=== PATIENT | female | born 1950 | race Caucasian/White ===

== ENCOUNTER 2022-08-25 14:33 | Outpatient (CLI) | payer OTHER, MEDICARE, SELFPAY ==
[2022-08-25 17:44] LABS: Albumin* 3.9 g/dL (3.3-5.0)
[2022-08-25 17:45] LABS: Chloride* 107 mmol/L (96-114); Potassium* 3.6 mmol/L (3.6-5.1); Sodium* 140 mmol/L (135-149)
[2022-08-25 17:47] LABS: Aspartate Amino Transferase* 36 U/L (12-35); Bilirubin Total* 0.9 mg/dL (0.1-1.5); Carbon Dioxide* 27 mmol/L (20-32); Cholesterol* 201 mg/dL (90-199); Estimated Glomerular Filt Rate 60 ml/min; Total Protein* 7.2 g/dL (6.0-8.3)
[2022-08-25 17:48] LABS: Alanine Aminotransferase* 28 U/L (4-35); Alkaline Phosphatase* 87 U/L (40-150); Blood Urea Nitrogen* 15 mg/dL (7-30); Calcium* 9.3 mg/dL (8.4-10.6); Glucose* 84 mg/dL (60-115); Triglycerides* 139 mg/dL (40-149)
[2022-08-25 17:49] LABS: HDL Cholesterol* 40 mg/dL (>=50); LDL Cholesterol Calculated 133 mg/dL (<100)
== END 2022-08-25 14:34 | disposition home or self-care (01) ==
PROVIDERS: PCP Family Medicine; Visit Provider Family Medicine
DX: Z00.00 Encounter for general adult medical examination without abnormal findings (principal); I10 Essential (primary) hypertension; E78.5 Hyperlipidemia, unspecified; E55.9 Vitamin D deficiency, unspecified; R73.03 Prediabetes; Z78.9 Other specified health status
CPT/HCPCS: 80053; 80061; 84443

== ENCOUNTER 2022-09-10 12:49 | Outpatient (CLI) | payer OTHER, SELFPAY ==
--- NOTE | 2022-09-10 13:30 | CRLHL7_ITS ---
For Patients: As a result of the Century Cures Act, medical imaging exams and procedure reports are released immediately into your electronic medical record. You may view this report before your referring provider. If you have questions, please contact your health care provider. DXA BONE MINERAL DENSITY STUDY Reason for exam: Screening. Current height (in): 60.5. Weight (lb): 150. Menopause age: 53. Ethnicity: White. 1. Have you had a previous hip or vertebral fracture? No. 2. Have you had any fractures during your adult life which did not result from significant trauma (e.g., auto accident)? No. 3. Did either of your parents have a hip fracture? No. 4. Do you smoke? No. 5. Have you ever taken Glucocorticoids? No. 6. Do you have rheumatoid arthritis? No. 7. Do you have secondary osteoporosis? No. 8. Do you drink 3 or more alcoholic drinks per day? No. 9. Are you being treated for osteoporosis? No. 10. Have you ever taken any of the following medications: Actonel, Evista, Fosamax, Miacalcin, Reclast, Boniva, Forteo, HRT (i.e., estrogen/hormone therapy), Protelos, Prolia, Vitamin D, Calcium, other ??? please specify. ANSWER: Yes, vitamin D and calcium. 11. Do you have any of the following medical conditions: Anorexia or bulimia, asthma or emphysema, end stage renal disease, hyperparathyroidism, any seizure disorders, cancer, inflammatory bowel diseases, hysterectomy, other ??? please specify. ANSWER: Yes, asthma or emphysema. 12. What was your maximum height (inches)? 60.5. 13. Do you perform weight bearing exercise regularly? Yes. 14. Do you regularly consume dairy products? Yes. 15. Do you drink caffeinated beverages? No. If female: 16. At what age did your period start? 17. 17. Are you premenopausal? No. 18. How many full-term pregnancies have you had? 1. 19. Have you ever missed your period for more than 6 months in a row (not including or menopause)? No. TECHNIQUE: Bone mineral density study was performed using the sim4tec. FINDINGS: The results of the study expressed as bone mineral density (BMD) are as follows: Lumbar spine L1 to L3: BMD: 0.884 g/cm2. T-score: -1.2. Z-score: 0.9. Neck Left: BMD: 0.626 g/cm2. T-score: -2.0. Z-score: -0.2. Right: BMD: 0.645 g/cm2. T-score: -1.8. Z-score: 0.0. Total Left: BMD: 0.796 g/cm2. T-score: -1.2. Z-score: 0.4 Right: BMD: 0.854 g/cm2. T-score: -0.7. Z-score: 0.8 IMPRESSION: Osteopenia. FRAX 10-year Fracture Risk Major Osteoporotic Fracture: 12% Hip Fracture: 2.2% Reported Risk Factors: [place] () Neck BMD=0.626, BMI= 28.8 Mala Senior M.D. Diagnostic/Breast Radiologist [email or web address] LORI/[email or web address] [email or web address]/Dictated by: Mala Senior MD @ 09/10/2022 2:23:00 PM (Electronically Signed)
== END 2022-09-10 12:50 | disposition home or self-care (01) ==
PROVIDERS: PCP Family Medicine; Visit Provider Family Medicine
DX: Z13.820 Encounter for screening for osteoporosis (principal); M85.89 Other specified disorders of bone density and structure, multiple sites; Z78.0 Asymptomatic menopausal state
CPT/HCPCS: 77080

== ENCOUNTER 2022-11-14 11:19 | Outpatient (CLI) | payer OTHER, SELFPAY | END 2022-11-14 11:20 | disposition home or self-care (01) | LOC: AMB 11-17 05:25 | PROVIDERS: PCP Family Medicine; Visit Provider Family Medicine | DX: R41.82 Altered mental status, unspecified (principal); R53.83 Other fatigue | CPT/HCPCS: A0425; A0429 ==

== ENCOUNTER 2022-11-14 11:51 | Emergency (ER) | payer OTHER, SELFPAY ==
[2022-11-14 12:03] VITALS: BP 139/94; PULSE 80; RESP 18; TEMP 35.9; O2SAT 97; BMI 25.6
--- NOTE | 2022-11-14 12:21 | CRLHL7_ITS ---
For Patients: As a result of the Century Cures Act, medical imaging exams and procedure reports are released immediately into your electronic medical record. You may view this report before your referring provider. If you have questions, please contact your health care provider. INDICATION: Chronic weakness TECHNIQUE: Noncontrast axial CT of the head. Coronal and sagittal reformats. Bone and soft tissue algorithms. COMPARISON: MRI brain 03/20/2021 FINDINGS: Redemonstration of bifrontal lobe encephalomalacia and gliosis, with scattered chronic lacunar infarcts throughout the bilateral basal ganglia and cerebellum. No acute intracranial hemorrhage or abnormal extra-axial fluid collection. No midline shift, hydrocephalus, or herniation. Generalized cerebral volume loss. Carpio-white matter differentiation is grossly maintained. Moderate supratentorial white matter hypoattenuation bilaterally. The midline structures are unremarkable. There is scattered intracranial atherosclerotic plaquing. Bony calvarium is grossly intact. Visualized paranasal sinuses and mastoid air cells are clear. Prominent cerumen is noted within the bilateral external auditory canals, left more than right. Unremarkable visualized orbits. IMPRESSION: 1. No evidence of acute intracranial abnormality. 2. Stable appearance of chronic bilateral frontal lobe infarcts, and remote lacunar infarcts throughout the basal ganglia and cerebellum. 3. Generalized cerebral volume loss and moderate chronic microangiopathy changes. 4. Prominent cerumen in both external auditory canals, left more than right. Please note that all CT scans at this facility use dose modulation, iterative reconstruction, and/or weight-based dosing when appropriate to reduce radiation dose to as low as reasonably achievable. Dictated by Rosalind Saucedo MD @ 11/14/2022 1:11:14 PM (Electronically Signed)
--- NOTE | 2022-11-14 12:21 | CRLHL7_ITS ---
For Patients: As a result of the Cures Act, medical imaging exams and procedure reports are released immediately into your electronic medical record. You may view this report before your referring provider. If you have questions, please contact your health care provider. Indication: Pain Comparison: None available. Technique: AP internal, external rotation, and scapular-Y views of the left shoulder were obtained Findings: There is no displaced fracture or dislocation. There are degenerative changes of the acromioclavicular and glenohumeral joints with minimal degenerative changes of the rotator cuff footplate. The soft tissues are unremarkable. Impression: Moderate degenerative changes of the shoulder without evidence of displaced fracture. Dictated by Albaro Alvarenga MD @ 11/14/2022 1:38:49 PM (Electronically Signed)
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
[2022-11-14 13:14] LABS: Basophils Absolute Auto 0.03 K/uL (0.00-0.30); Basophils Percent Auto 0.5 % (0.0-3.0); Eosinophils Absolute Auto 0.22 K/uL (0.00-0.50); Eosinophils Percent Auto 3.4 % (0.0-7.0); Hematocrit 42.8 % (33.0-51.0); Hemoglobin* 14.7 gm/dL (12.0-16.0); Lymphocytes Percent Auto 15.6 % (20-44); Mean Corpuscular HGB Conc 34 gm/dL (32-36); Mean Corpuscular Hemoglobin 30 pg (26-34); Mean Corpuscular Volume 87 fL (80-100); Monocytes Percent Auto 7.7 % (0.0-11.0); Neutrophils Percent Auto 72.8 % (42.0-72.0); Platelet Count* 358 K/uL (140-440); RDW Coefficient of Variation % 11.4 % (11.5-15.5); Red Blood Count 4.94 m/uL (4.00-5.20); Slide Review Reflex No; White Blood Count* 6.48 K/uL (4.50-11.00)
[2022-11-14 13:23] LABS: Chloride* 106 mmol/L (96-114); Potassium* 3.2 mmol/L (3.6-5.1); Sodium* 140 mmol/L (135-149)
[2022-11-14 13:26] LABS: Carbon Dioxide* 27 mmol/L (20-32); Creatinine* 0.6 mg/dL (0.5-1.5); Est. Creatinine Clearance* 40.81; Estimated Glomerular Filt Rate 96 ml/min
[2022-11-14 13:27] LABS: Blood Urea Nitrogen* 13 mg/dL (7-30); Calcium* 9.3 mg/dL (8.4-10.6); Glucose* 104 mg/dL (60-115)
[2022-11-14 13:43] VITALS: PULSE 68; O2SAT 97
[2022-11-14 13:56] LABS: Appearance Urine Cloudy (Clear); Bilirubin Urine Negative (Negative); Blood Urine Negative (Negative); Color Urine Yellow (Yellow); Glucose Urine Negative (Negative); Ketones Urine 1+ (Negative); Leukocyte Esterase Urine Negative (Negative); Nitrite Urine Negative (Negative); Protein Urine Negative (Negative); Specific Gravity Urine 1.015 (1.000-1.030)
--- NOTE | 2022-11-14 13:56 | ED.NURSE ---
Per instruction, call to Faiz[facility] TELLES to discuss pt's living conditions and if pt is safe to be discharged home. [facility] TELL[facility] reports pt is safe to return home and that she has food, etc., but that medical social worker needs to follow up next week to assist pt in removing clutter. Fa[facility] TELLES reports pt stated she couldn't do it all by herself anymore. updated.
[2022-11-14 14:03] LABS: RBC Urine 0-2 (0-2); Squamous Epithelial Cell Urine Few (None-Few); WBC Urine 0-2 (0-5)
[2022-11-14 14:04] LABS: Amorphous Sediment Urine Moderate
[2022-11-14] MEDS: POTASSIUM CHLORIDE 10 MEQ CAPSULE ER 20 MEQ PO (14:19)
--- NOTE | 2022-11-14 14:31 | ED.NURSE ---
Call to pt's son to give update. No answer. VM left.
== END 2022-11-14 14:56 | disposition home or self-care (01) ==
PROVIDERS: Emergency Provider Internal Medicine; PCP Family Medicine
DX: R53.1 Weakness (principal); Z91.148 Patient's other noncompliance with medication regimen for other reason
CPT/HCPCS: 36415; 70450; 73030; 80048; 81003; 81015; 85025; 99283; 99284; 99285; A9270

== ENCOUNTER 2022-11-16 16:10 | Outpatient (CLI) | payer OTHER, SELFPAY | END 2022-11-16 16:11 | disposition home or self-care (01) | LOC: AMB 11-17 07:46 | PROVIDERS: PCP Family Medicine; Visit Provider Family Medicine | DX: R53.1 Weakness (principal); R20.0 Anesthesia of skin | CPT/HCPCS: A0425; A0427 ==

== ENCOUNTER 2022-11-16 16:28 | Emergency (ER) | payer OTHER, SELFPAY ==
[2022-11-16] VITALS (10 sets, daily range): BP systolic 108–148; BP diastolic 88–101; PULSE 73–82; TEMP 36.2; O2SAT 95–97; BMI 25.6
[2022-11-16] MEDS: KETOROLAC 30 MG/ML inj IM (17:11)
[2022-11-16] MEDS: POTASSIUM CHLORIDE 10 MEQ CAPSULE ER 40 MEQ PO (18:17)
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
== END 2022-11-16 18:45 | disposition home or self-care (01) ==
PROVIDERS: Emergency Provider Family Medicine; PCP Family Medicine
DX: M75.00 Adhesive capsulitis of unspecified shoulder (principal); E87.6 Hypokalemia
CPT/HCPCS: 36415; 84132; 96372; 99282; 99283; 99284; A9270; J1885

== ENCOUNTER 2022-11-20 06:04 | Outpatient (CLI) | payer OTHER, SELFPAY | END 2022-11-20 06:05 | disposition home or self-care (01) | LOC: AMB 11-24 09:49 | PROVIDERS: PCP Family Medicine; Visit Provider Internal Medicine | DX: R53.1 Weakness (principal) | CPT/HCPCS: A0998 ==

== ENCOUNTER 2022-11-21 09:25 | Outpatient (CLI) | payer OTHER, SELFPAY | END 2022-11-21 09:26 | disposition home or self-care (01) | LOC: AMB 11-25 09:38 | PROVIDERS: PCP Family Medicine; Visit Provider Family Medicine | DX: M25.542 Pain in joints of left hand (principal); M25.541 Pain in joints of right hand; M62.81 Muscle weakness (generalized) | CPT/HCPCS: A0425; A0429 ==

== ENCOUNTER 2022-11-21 09:39 | Emergency (ER) | payer OTHER, SELFPAY ==
[2022-11-21] VITALS (13 sets, daily range): BP systolic 139–155; BP diastolic 84–112; PULSE 64–78; RESP 16–18; TEMP 36.2; O2SAT 95–100; BMI 25.6
--- NOTE | 2022-11-21 09:49 | CRLHL7_ITS ---
For Patients: As a result of the Century Cures Act, medical imaging exams and procedure reports are released immediately into your electronic medical record. You may view this report before your referring provider. If you have questions, please contact your health care provider. INDICATION: WEAKNESS HX OD STOKE TECHNIQUE: CT of the head without contrast. Coronal and sagittal reformats. Bone and soft tissue algorithms. COMPARISON: No prior studies available for comparison at this institution. FINDINGS: Stable moderate regions of encephalomalacia in the bilateral frontal cortex. Stable chronic infarcts in the bilateral basal ganglia. No acute intracranial hemorrhage or extraaxial collection. No evidence of acute cortical infarction. No mass effect or midline shift. Mild generalized cerebral and cerebellar parenchymal volume loss. Mild regions of decreased attenuation within the periventricular and subcortical white matter of both cerebral hemispheres most likely reflects chronic microvascular ischemic disease and age related change in this patient. Vascular calcifications within the carotid siphons. Orbital contents are normal. No calvarial fractures. No lytic or sclerotic osseous lesions within the calvarium or skull base. Scalp and other imaged soft tissue structures are normal. Mastoid air cells are clear. Moderate cerumen in the external ear canals. Rightward deviation of the nasal septum. IMPRESSION: 1. No acute intracranial abnormality. 2. Stable moderate encephalomalacia in the frontal cortex. Stable chronic infarcts in the bilateral basal ganglia. 3. Stable mild parenchymal volume loss and chronic small vessel ischemic changes. Please note that all CT scans at this facility use dose modulation, iterative reconstruction, and/or weight-based dosing when appropriate to reduce radiation dose to as low as reasonably achievable. Dictated by Perfecto Turner MD @ 11/21/2022 10:23:16 AM (Electronically Signed)
--- NOTE | 2022-11-21 09:50 | CRLHL7_ITS ---
For Patients: As a result of the Cures Act, medical imaging exams and procedure reports are released immediately into your electronic medical record. You may view this report before your referring provider. If you have questions, please contact your health care provider. INDICATION: Weakness. FINDINGS: A single PA chest x-ray shows a normal cardiac silhouette. The lungs show no focal pulmonary opacities. Sharp pleural margins. No pneumothorax. IMPRESSION: No focal pulmonary opacities. No pneumothorax. Dictated by Cheng Senior MD @ 11/21/2022 10:31:01 AM Dictated by: Cheng Senior MD @ 11/21/2022 10:31:08 (Electronically Signed)
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
--- NOTE | 2022-11-21 10:08 | ED.NURSE ---
Patient in radiology. Will start IV/draw labs when she returns.
[2022-11-21] MEDS: 0.9 % SODIUM CHLORIDE 500 ML 500 ML IV (10:30)
[2022-11-21 10:41] LABS: Basophils Absolute Auto 0.04 K/uL (0.00-0.30); Basophils Percent Auto 0.7 % (0.0-3.0); Eosinophils Absolute Auto 0.14 K/uL (0.00-0.50); Eosinophils Percent Auto 2.5 % (0.0-7.0); Hematocrit 42.5 % (33.0-51.0); Hemoglobin* 14.6 gm/dL (12.0-16.0); Immature Granulocytes Abs Auto 0.01 K/uL (0.00-0.30); Immature Granulocytes Pct Auto 0.2 %; Lymphocytes Percent Auto 19.6 % (20-44); Mean Corpuscular HGB Conc 34 gm/dL (32-36); Mean Corpuscular Hemoglobin 30 pg (26-34); Mean Corpuscular Volume 87 fL (80-100); Monocytes Percent Auto 8.9 % (0.0-11.0); Neutrophils Absolute Auto 3.81 K/uL (1.7-7.0); Neutrophils Percent Auto 68.1 % (42.0-72.0); Platelet Count* 365 K/uL (140-440); RDW Coefficient of Variation % 11.7 % (11.5-15.5); Red Blood Count 4.91 m/uL (4.00-5.20)
[2022-11-21 10:48] LABS: Slide Review Reflex No
[2022-11-21 10:58] LABS: Albumin* 4.1 g/dL (3.3-5.0); Chloride* 105 mmol/L (96-114); Sodium* 139 mmol/L (135-149)
[2022-11-21 10:59] LABS: Potassium* 3.8 mmol/L (3.6-5.1)
[2022-11-21 11:01] LABS: Amylase* 57 U/L (18-89)
[2022-11-21 11:02] LABS: Alanine Aminotransferase* 26 U/L (4-35); Alkaline Phosphatase* 115 U/L (40-150); Aspartate Amino Transferase* 28 U/L (12-35); Bilirubin Direct* 0.3 mg/dL (0.0-0.5); Bilirubin Total* 0.8 mg/dL (0.1-1.5); Blood Urea Nitrogen* 19 mg/dL (7-30); Calcium* 9.8 mg/dL (8.4-10.6); Carbon Dioxide* 26 mmol/L (20-32); Creatinine* 0.8 mg/dL (0.5-1.5); Est. Creatinine Clearance* 40.81; Estimated Glomerular Filt Rate 79 ml/min; Glucose* 108 mg/dL (60-115); Total Protein* 7.9 g/dL (6.0-8.3)
[2022-11-21 11:23] LABS: Ethanol* < 0.01 % (0.01-0.03); NT Pro B Type NatriureticPept* 74 pg/mL
[2022-11-21] MEDS: IBUPROFEN 400 MG TABLET 800 MG PO (11:23)
[2022-11-21] MEDS: ACETAMINOPHEN 500 MG TABLET 1000 MG PO (11:23)
[2022-11-21 11:29] LABS: PCR FLU A Negative PCR FLU A (Negative); PCR FLU B Negative PCR FLU B (Negative); PCR RSV Negative PCR RSV (Negative)
[2022-11-21 11:30] LABS: SARS PCR* Negative SARS-CoV-2 (Negative)
[2022-11-21 11:43] LABS: Appearance Urine Clear (Clear); Bilirubin Urine Negative (Negative); Blood Urine 2+ (Negative); Color Urine Yellow (Yellow); Glucose Urine Negative (Negative); Ketones Urine Negative (Negative); Leukocyte Esterase Urine Negative (Negative); Nitrite Urine Negative (Negative); Protein Urine Negative (Negative); Specific Gravity Urine 1.015 (1.000-1.030)
[2022-11-21 11:47] LABS: Amphetamine Screen Urine Negative (Negative); Barbiturate Screen Urine Negative (Negative); Benzodiazepines Screen Urine Negative (Negative); Cocaine Screen Urine Negative (Negative); Methadone Screen Urine Negative (Negative); Methamphetamines Screen Urine Negative (Negative); Opiate Screen Urine Negative (Negative); Oxycodone Screen Urine Negative (Negative); Phencyclidine Screen Urine Negative (Negative); Tricyclic Antidepressant Urine Negative (Negative)
[2022-11-21 11:49] LABS: Cannabinoid Screen Urine POSITIVE (Negative)
[2022-11-21 11:52] LABS: Bacteria Urine Few; Squamous Epithelial Cell Urine Few (None-Few); WBC Urine 0-2 (0-5)
--- NOTE | 2022-11-21 13:34 | ED.NURSE ---
Discharge teaching complete, all questions answered. Patient requesting help establishing home health. Explained social media developer consult order was placed. Patient's son Desmond on his way to provide a ride home. Will see if he can provide a ride tomorrow to clinic appointment. I have contacted our EMS and they no longer have community oxygen equipment aide services to help with ride to clinic. Patient does have Medicare, will have her and son contact to establish rides to appointments too. IV dc'd, catheter intact. VSS. Waiting on son for ride home.
--- NOTE | 2022-11-21 14:14 | ED.NURSE ---
Patient's son here to provide ride home. Patient up to restroom, then ambulates out to son's truck with PRACTICE PHYSICIAN. Patient's son Desmond understands patient needs assistance getting to 2:15 appointment tomorrow. He notes he will try to get patient to clinic. Advised to call transport number on medicare card for future appointment transportation needs. Also, can call [employer] when the open tomorrow to inquire about taxi transportation. They are not available today (Tuesday) to schedule a ride. [facility] [employer] notes not being available tomorrow at appointment time. Son verbalizes understanding, no questions/concerns.
--- NOTE | 2022-11-22 13:34 | PC.SOCIAL ---
Phone call to pt at [phone]. There was no answer and no voicemail set up. Pt has an appointment with clinic today at 2:15 pm. Contacted nurse, Carlita, in clinic to discuss situation from ED. Asked that MD determine if pt meets criteria for home care and if pt does then complete face to face sheet. If clinic has further questions they can reach out to social work. Carlita informed they will follow up with pt during appointment. Social work will follow up as necessary.
== END 2022-11-21 14:14 | disposition home or self-care (01) ==
PROVIDERS: Emergency Provider Family Medicine; PCP Family Medicine
DX: M79.643 Pain in unspecified hand (principal)
CPT/HCPCS: 36415; 70450; 71045; 80048; 80076; 80306; 81001; 82077; 82150; 83880; 84443; 84484; 85025; 86140; 87086; 87631; 99283; 99284; A9270; J7120

== ENCOUNTER 2022-11-27 17:25 | Outpatient (CLI) | payer OTHER, SELFPAY | END 2022-11-27 17:26 | disposition home or self-care (01) | LOC: AMB 11-30 10:03 | PROVIDERS: PCP Family Medicine; Visit Provider Family Medicine | DX: M25.511 Pain in right shoulder (principal); M25.641 Stiffness of right hand, not elsewhere classified | CPT/HCPCS: A0425; A0429 ==

== ENCOUNTER 2022-12-16 11:16 | Outpatient (RCR) | payer SELFPAY | END 2023-12-16 16:07 | disposition home or self-care (01) | LOC: MOW 11:16 | PROVIDERS: PCP Family Medicine; Visit Provider Family Medicine | DX: Z76.0 Encounter for issue of repeat prescription (principal) | CPT/HCPCS: S5170 ==

== ENCOUNTER 2023-04-18 08:47 | Outpatient (CLI) | payer OTHER, SELFPAY | END 2023-04-18 08:48 | disposition home or self-care (01) | LOC: AMB 04-24 09:12 | PROVIDERS: PCP Family Medicine; Visit Provider Family Medicine | DX: M25.552 Pain in left hip (principal) | CPT/HCPCS: A0425; A0427 ==

== ENCOUNTER 2023-04-18 09:10 | Inpatient (IN) | payer OTHER, SELFPAY ==
[2023-04-18] VITALS (26 sets, daily range): BP systolic 95–157; BP diastolic 57–104; PULSE 49–101; RESP 14–18; TEMP 36.1–37.3; O2SAT 90–95; BMI 25.6
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
--- NOTE | 2023-04-18 09:47 | CRLHL7_ITS ---
For Patients: As a result of the Century Cures Act, medical imaging exams and procedure reports are released immediately into your electronic medical record. You may view this report before your referring provider. If you have questions, please contact your health care provider. Indication: fall, left hip/pelvic pain Technique: AP pelvis and two views left hip Comparison: None Findings: There is an impacted fracture deformity of the left femoral neck with associated increased density in the medullary canal. Right hip appears intact. Intact pubic rami and sacrum. Impression: Impacted left femoral neck fracture. Dictated by Perfecto Tolentino MD @ 04/18/2023 10:35:52 AM (Electronically Signed)
--- NOTE | 2023-04-18 10:40 | CRLHL7_ITS ---
For Patients: As a result of the Century Cures Act, medical imaging exams and procedure reports are released immediately into your electronic medical record. You may view this report before your referring provider. If you have questions, please contact your health care provider. INDICATION: Preop, left hip fracture TECHNIQUE: Chest 1 view COMPARISON: 11/21/2022 FINDINGS: Low lung volumes. Aortic tortuosity. Mild areas of parenchymal scarring. No acute infiltrate or edema. No effusion or pneumothorax. IMPRESSION: No acute findings. Dictated by Perfecto Tolentino MD @ 04/18/2023 10:55:49 AM (Electronically Signed)
[2023-04-18 11:11] LABS: Basophils Absolute Auto 0.03 K/uL (0.00-0.30); Basophils Percent Auto 0.4 % (0.0-3.0); Eosinophils Percent Auto 6.7 % (0.0-7.0); Hematocrit 40.5 % (33.0-51.0); Hemoglobin* 13.7 gm/dL (12.0-16.0); Immature Granulocytes Abs Auto 0.01 K/uL (0.00-0.30); Immature Granulocytes Pct Auto 0.1 %; Lymphocytes Percent Auto 6.7 % (20-44); Mean Corpuscular HGB Conc 34 gm/dL (32-36); Mean Corpuscular Hemoglobin 29 pg (26-34); Mean Corpuscular Volume 87 fL (80-100); Monocytes Percent Auto 4.8 % (0.0-11.0); Neutrophils Percent Auto 81.3 % (42.0-72.0); Platelet Count* 251 K/uL (140-440); Red Blood Count 4.66 m/uL (4.00-5.20); White Blood Count* 7.45 K/uL (4.50-11.00)
[2023-04-18 11:12] LABS: Slide Review Reflex No
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
[2023-04-18 11:27] LABS: Albumin* 3.9 g/dL (3.3-5.0)
[2023-04-18 11:28] LABS: Chloride* 106 mmol/L (96-114); Potassium* 3.4 mmol/L (3.6-5.1); Sodium* 138 mmol/L (135-149)
[2023-04-18 11:30] LABS: Anion Gap 10 mEq/L (7-15); Aspartate Amino Transferase* 20 U/L (12-35); Bilirubin Total* 1.3 mg/dL (0.1-1.5); Carbon Dioxide* 22 mmol/L (20-32); Creatinine* 0.7 mg/dL (0.5-1.5); Est. Creatinine Clearance* 40.81; Estimated Glomerular Filt Rate 92 ml/min; Total Protein* 7.6 g/dL (6.0-8.3)
[2023-04-18 11:31] LABS: Alanine Aminotransferase* 15 U/L (4-35); Alkaline Phosphatase* 102 U/L (40-150); Blood Urea Nitrogen* 12 mg/dL (7-30); Calcium* 9.5 mg/dL (8.4-10.6); Glucose* 93 mg/dL (60-115)
--- NOTE | 2023-04-18 11:41 | ED.NURSE ---
report given to Jennyfer, pt will transfer to room 256 via cart.
[2023-04-18] MEDS: fentaNYL 100 MCG/2 ML inj 25 MCG IVP (11:50)
[2023-04-18] MEDS: ONDANSETRON 2 MG/ML inj 4 MG IVP (11:50)
[2023-04-18 12:25] LABS: Cholesterol* 227 mg/dL (90-199); HDL Cholesterol* 39 mg/dL (>=50); LDL Cholesterol Calculated 164 mg/dL (<100); Triglycerides* 122 mg/dL (40-149)
[2023-04-18 12:26] LABS: Ethanol* < 0.01 % (0.01-0.03)
[2023-04-18] MEDS: POTASSIUM CHLORIDE 10 MEQ/100 ML PIGGYBACK 100 MEQ IVPB ×2 (13:03→16:11)
[2023-04-18 13:27] LABS: Hemoglobin A1C* 4.87 % (0-5.6)
[2023-04-18] MEDS: LACTATED RINGERS 1000 ML 1,000 ML 125 ML IV (13:50)
[2023-04-18] MEDS: CEFAZOLIN 2 GM in 0.9 % SODIUM CHLORIDE Mini-bag 100 ML IVPB (13:55)
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
--- NOTE | 2023-04-18 14:00 | CRLHL7_ITS ---
For Patients: As a result of the Cures Act, medical imaging exams and procedure reports are released immediately into your electronic medical record. You may view this report before your referring provider. If you have questions, please contact your health care provider. Indication: Fracture fixation Technique: Three fluoroscopic images of the left hip. Fluoroscopic time 50.4 seconds. IMPRESSION: Fluoroscopic guidance for open reduction internal fixation proximal left femoral fracture. Dictated by Perfecto Tolentino MD @ 04/19/2023 9:10:15 AM (Electronically Signed)
--- NOTE | 2023-04-18 14:22 | SUR.OPER ---
BLOCK COMPLETED PER MDA PREOPERATIVELY
--- NOTE | 2023-04-18 14:38 | W.PM.NB ---
Nerve Block Nerve Block Time Seen by Provider: 14:02 Date Seen: 04/18/23 Type of block requested by surgeon for post-operative analgesia: KAMINI/LFCN Side: left Time out performed: Yes Verification of patient name: Yes Verification of date of : Yes Site marking: site marked Name of person performing procedure: Jan Continuous monitoring Was continuous monitoring of O2 sat, B/P, nurse monitoring, recorded every 15 minutes?: Yes Procedure Checklist: sterile prep, needles and gloves Ultrasound guided. Images saved: Yes Medications given in 5ml increments after negative aspiration: Ropivicaine %: 0.5 mL: 30 Needle gauge: 20 Decadron (mg): 10 Precedex (mcg): 25 Patient tolerated procedure well: Yes Additional comments: Needle noted below psoas tendon needle noted adjacent to LFCN Block Charges Block Charge (with Pro Fee): Other Periph Nerve Block Use of Ultrasound Machine for Block: Yes- US Guidance/pain block
--- NOTE | 2023-04-18 14:38 | W.ANESCHARGE ---
Anesthesia Charges Start Date/Time Anesthesia Start Date: 04/18/23 Anesthesia Start Time: 13:50 Stop Date/Time Anesthesia Stop Date: 04/18/23 Anesthesia Stop Time: 15:02 Summary Extremes of Age - Over 70 or under 1: MDA
--- NOTE | 2023-04-18 14:43 | P.ORPRC_ITS ---
Procedure Note Date of procedure: 04/18/23 Procedure: PREOPERATIVE DIAGNOSES: 1. Left femoral neck fracture, valgus impacted, extra-articular POSTOPERATIVE DIAGNOSES: 1. Left femoral neck fracture, valgus impacted, extra-articular NAME OF OPERATION: 1. Left femur open reduction and internal fixation 2. 56396 - intraoperative fluoroscopy up to 1 hour. SURGEON: Clinton Gamboa MD PROJECT MANAGER/TEAM COACH: Ángel ESCAMILLA. Of note, an assistant product manager was critical for this case to aide in patient positioning, extremity positioning, tissue retraction, instrument manipulation, and closure. ANESTHESIA: Spinal IMPLANTS: Synthes femoral neck system (FNS) with 1 hole side plate with associated screw, a lag screw, and divergent, anti-rotation femoral head screw. EBL: 50 mL COMPLICATIONS: None evident INDICATIONS: The patient is a pleasant, 72-year-old female who unfortunately sustained a fall on 04/16/2023. She was able to bear weight following this for the next 2 days. However, it was painful. This prompted her to visit [facility]. X-rays were obtained and revealed a proximal femur fracture consistent with that described above. Given these findings, along with the desire to help with pain control and improve mobility/mobilization, surgery was recommended to stabilize the fracture and prevent it from displacing. PROCEDURE: Following a thorough discussion of risks, benefits, and alternatives, consent was obtained and the left hip was marked. After obtaining proper medical evaluation determining the patient was optimized prior to surgery, they were brought to the operating room and placed supine on the operating table. Induction of anesthesia undertaken. 1 g IV Ancef was administered within 1 hr of incision preoperatively. Proper time-out was performed identifying proper patient, site, and procedure. The operative extremity was prepped & draped in the appropriate sterile fashion using ChloraPrep after the patient was positioned on the fracture table with the head in neutral alignment and all bone prominences well padded. C-arm fluoroscopic imaging was utilized to obtain AP and lateral views of the operative hip. This indeed confirmed proper position of the proximal femur fracture. 10 blade skin incision was made distal to the greater trochanteric tip. Sharp incision through skin and ITB band allowed palpation of the proximal femur distal to the greater trochanteric tip. A partially threaded guidewire was initially placed near the center of the femoral neck position on both AP and lateral planes. Following this the associated steps for placement of the FNS device were completed sequentially including the bolt, crossing screw for 1 hole plate, and anti-rotation screw. C-arm fluoroscopic imaging confirmed fracture to remain stable, screws to be extra-articular, and the femur to now be moving as a single unit. Irrigation normal saline was performed followed by closure with # 0 Vicryl for the ITB band, 2-O Vicryl and 4-0 Monocryl for subcutaneous and subcuticular closure, respectively. The patient was awoken from anesthesia and transferred to the PACU in stable condition. PLAN: 1. Weight bear as tolerated operative lower extremity. 2. Encouraged ice. 3. Oxycodone for pain as needed. 4. 23 hr perioperative antibiotics. 5. Chemoprophylaxis for DVT prophylaxis along with Paresh nguyen and SCDs.
[2023-04-18] MEDS: LACTATED RINGERS 1000 ML 1,000 ML 35 ML IV (14:55)
[2023-04-18] MEDS: LACTATED RINGERS 1000 ML 1,000 ML 75 ML IV ×2 (15:45→19:10)
[2023-04-18] MEDS: PANTOPRAZOLE SODIUM 40 MG INJ IVP (16:10)
[2023-04-18] MEDS: HYDROmorphone 0.5 mg/0.5 ml inj IVP (16:11)
--- NOTE | 2023-04-18 19:00 | PC.NURSE ---
End of shift... Initially arrived to the floor in the early afternoon...A and orientated L hip fracture Dr Lewis ruled her a candidate for a repair. Returned from surgery @ 1530. VS on RA until about 1600 then went down into the mid 80's O2 order was obtained was on 1L NC, removed @ 1830.. stating in the mid 90's now with no issues. Dressing to L hip is CDI, with no drainage. Active ice to Op site. Tolerating PO intake and food with no complaints. Complained of neck pain upon arrival back from surgery- PRN Dilaudid was given with adequate relief.. rated her pain at 2/10 now she states she has no pain. She has not gotten up yet this evening or voided since surgery. LR @ 75 hr... 2 doses of IV potassium were given today. Will call appropriately. Call light within reach.. resting in bed watching TV.
[2023-04-18] MEDS: SENNOSIDES 1 TAB TABLET 2 TAB PO (21:16)
[2023-04-19] VITALS (7 sets, daily range): BP systolic 126–155; BP diastolic 75–129; PULSE 68–85; RESP 16–18; TEMP 36.4–37.3; O2SAT 91–98
--- NOTE | 2023-04-19 06:12 | PC.NURSE ---
End of shift report [id number]: Patient denied pain to left hip throughout the shift. Dressing clean, dry and intact. Left hip with trace edema. Incontinent of bladder through the shift, per patient report that is her baseline. Patient voiding large amounts of yellow urine.
[2023-04-19] MEDS: OMEPRAZOLE 20 MG CAPSULE DR PO (06:29)
[2023-04-19 06:35] LABS: Hematocrit 37.7 % (33.0-51.0); Hemoglobin* 12.8 gm/dL (12.0-16.0); Mean Corpuscular HGB Conc 34 gm/dL (32-36); Mean Corpuscular Hemoglobin 29 pg (26-34); Mean Corpuscular Volume 86 fL (80-100); Platelet Count* 245 K/uL (140-440); Red Blood Count 4.39 m/uL (4.00-5.20); White Blood Count* 7.37 K/uL (4.50-11.00)
[2023-04-19 06:42] LABS: Slide Review Reflex No
[2023-04-19 06:54] LABS: Potassium* 3.7 mmol/L (3.6-5.1); Sodium* 137 mmol/L (135-149)
[2023-04-19 06:57] LABS: Blood Urea Nitrogen* 13 mg/dL (7-30)
[2023-04-19 07:05] LABS: INR 1.02 (0.91-1.10)
[2023-04-19 07:12] LABS: Creatinine* 0.6 mg/dL (0.5-1.5); Est. Creatinine Clearance* 40.81; Estimated Glomerular Filt Rate 96 ml/min
--- NOTE | 2023-04-19 08:44 | PM.ORPN ---
Subjective Subjective Date Seen: 04/19/23 Principal diagnosis: Status postop day 1, left hip, femoral neck ORIF Interval history: Patient reports doing well. No acute events over night. Pain managed with scheduled and PRN medications, ice. DVT prophylaxis: Rivaroxaban, bilateral knee high Paresh stockings, SCDs, walking. Denies fevers, chills, aches, N/V, CP, SOB/AMBROSE, or lightheadedness. Passing flatus. Ortho Exam Narrative Exam Narrative: -Patient appears comfortable in bed, eating breakfast; no apparent acute distress -Alert and oriented times 3 -Operative hip mildly swollen; soft tissues supple; no obvious erythema. No ecchymosis. Warmth appropriate -Surgical dressing clean, dry, intact; no obvious drainage, no erythematous streaking peripheral to the bandage -Bilateral calves soft and supple; no significant swelling, edema, tenderness, erythema, discoloration, warmth, or palpable cords -2+ DP/PT pulses, intact dermatomes and myotomes distally (5/5 strength). No numbness about the lateral femoral cutaneous nerve distribution. Const Vital Signs, click to edit/add: Vital Signs - 24 hr 04/18/23 09:24 04/18/23 11:15 04/18/23 11:30 Temperature 98.4 F Pulse Rate 86 88 Pulse Rate [Left Pulse Oximeter] Pulse Rate [Pulse Oximeter] 80 Respiratory Rate 16 Blood Pressure Blood Pressure [Left Arm] Blood Pressure [Right Upper Arm] 134/89 Pulse Oximetry 92 94 94 Oxygen Delivery Method Room Air Oxygen Flow Rate 04/18/23 11:31 04/18/23 11:32 04/18/23 12:00 Temperature Pulse Rate 89 86 91 Pulse Rate [Left Pulse Oximeter] Pulse Rate [Pulse Oximeter] Respiratory Rate Blood Pressure 151/93 H Blood Pressure [Left Arm] Blood Pressure [Right Upper Arm] Pulse Oximetry 95 94 90 Oxygen Delivery Method Oxygen Flow Rate 04/18/23 12:01 04/18/23 12:44 04/18/23 12:44 Temperature 99.1 F Pulse Rate 92 Pulse Rate [Left Pulse Oximeter] 77 Pulse Rate [Pulse Oximeter] Respiratory Rate 18 Blood Pressure 157/104 H Blood Pressure [Left Arm] 148/104 H Blood Pressure [Right Upper Arm] Pulse Oximetry 93 95 94 Oxygen Delivery Method Room Air Room Air Oxygen Flow Rate 04/18/23 14:55 04/18/23 15:00 04/18/23 15:05 Temperature 98.1 F Pulse Rate 80 81 78 Pulse Rate [Left Pulse Oximeter] Pulse Rate [Pulse Oximeter] Respiratory Rate 16 15 16 Blood Pressure 107/66 95/68 106/72 Blood Pressure [Left Arm] Blood Pressure [Right Upper Arm] Pulse Oximetry 92 93 94 Oxygen Delivery Method Room Air Oxygen Flow Rate 04/18/23 15:10 04/18/23 15:15 04/18/23 15:20 Temperature 97.9 F Pulse Rate 75 72 75 Pulse Rate [Left Pulse Oximeter] Pulse Rate [Pulse Oximeter] Respiratory Rate 16 18 16 Blood Pressure 110/70 109/80 110/57 L Blood Pressure [Left Arm] Blood Pressure [Right Upper Arm] Pulse Oximetry 93 94 95 Oxygen Delivery Method Oxygen Flow Rate 04/18/23 15:25 04/18/23 15:30 04/18/23 15:45 Temperature 97.0 F L 97.0 F L Pulse Rate 76 73 Pulse Rate [Left Pulse Oximeter] 63 Pulse Rate [Pulse Oximeter] Respiratory Rate 14 18 18 Blood Pressure 110/70 Blood Pressure [Left Arm] 120/76 121/82 Blood Pressure [Right Upper Arm] Pulse Oximetry 94 92 Oxygen Delivery Method Room Air Room Air Oxygen Flow Rate 04/18/23 16:00 04/18/23 16:00 04/18/23 16:15 Temperature 97.0 F L 97.0 F L Pulse Rate Pulse Rate [Left Pulse Oximeter] 68 68 Pulse Rate [Pulse Oximeter] Respiratory Rate 18 18 Blood Pressure Blood Pressure [Left Arm] 125/83 133/78 Blood Pressure [Right Upper Arm] Pulse Oximetry 91 93 91 Oxygen Delivery Method Nasal Cannula Room Air Room Air Oxygen Flow Rate 1 04/18/23 16:30 04/18/23 17:00 04/18/23 17:00 Temperature 97.0 F L 97.5 F L Pulse Rate 73 Pulse Rate [Left Pulse Oximeter] 66 60 Pulse Rate [Pulse Oximeter] Respiratory Rate 18 18 Blood Pressure Blood Pressure [Left Arm] 112/84 144/79 H Blood Pressure [Right Upper Arm] Pulse Oximetry 93 93 Oxygen Delivery Method Room Air Nasal Cannula Oxygen Flow Rate 1 04/18/23 17:30 04/18/23 18:30 04/18/23 19:30 Temperature 97.5 F L 97.5 F L 97.4 F L Pulse Rate Pulse Rate [Left Pulse Oximeter] 63 75 95 Pulse Rate [Pulse Oximeter] Respiratory Rate 18 18 18 Blood Pressure Blood Pressure [Left Arm] 133/90 H 132/99 H 126/89 Blood Pressure [Right Upper Arm] Pulse Oximetry 91 93 93 Oxygen Delivery Method Nasal Cannula Room Air Room Air Oxygen Flow Rate 1 04/18/23 21:30 04/18/23 23:00 04/18/23 23:00 Temperature 97.4 F L Pulse Rate Pulse Rate [Left Pulse Oximeter] 101 H Pulse Rate [Pulse Oximeter] Respiratory Rate 16 Blood Pressure Blood Pressure [Left Arm] 128/77 Blood Pressure [Right Upper Arm] Pulse Oximetry 95 92 92 Oxygen Delivery Method Room Air Room Air Oxygen Flow Rate 04/18/23 23:00 04/18/23 23:00 04/19/23 03:00 Temperature 97.8 F 97.5 F L Pulse Rate 49 L Pulse Rate [Left Pulse Oximeter] 58 L 81 Pulse Rate [Pulse Oximeter] Respiratory Rate 16 17 Blood Pressure Blood Pressure [Left Arm] 127/78 131/85 Blood Pressure [Right Upper Arm] Pulse Oximetry 92 91 Oxygen Delivery Method Room Air Room Air Oxygen Flow Rate Assessment and Plan Assessment and plan (1) Fracture of femoral neck, left, closed: Problem details: DOI: 04/16/2023 Risk for surgery optimized. May proceed. Status: Acute (2) Cerebral vascular disease: Problem details: -recurrent lacunar strokes, recurrent microvascular disease events -ICA mild stenosis with aneurysm (stable, MR due in 04/10) -encephalomalacia -cognitive dysfunction -MRA 03/2021 left internal carotid aneurysm, Need FU MRA in 04/10 followed by [facility] Status: Acute (3) Hypertension: Status: Chronic (4) Stenosis of carotid artery: Problem details: less than 50% adv aneurysm stable. repeat scan in 3 years to monitor - note by NS in 05/07 Status: Chronic (5) History of multiple cerebrovascular accidents (CVAs): Problem details: multiple lacunar strokes and encephalomalacia on MRI 03/2021 Echo 2019 FINAL IMPRESSION: Technically very difficult study. Limited views are obtained. Overall, normal LV systolic size and function with no significant valve disease. Negative bubble study indicating absence of patent foramen ovale. Status: Chronic (6) Mild intermittent asthma: Problem details: prn use Status: Acute (7) Prediabetes: Problem details: A1C pending Status: Chronic (8) Status post hip surgery: Problem details: POD 1 left hip ORIF, femoral neck system Status: Acute Plan - Complete 23 hour perioperative antibiotics. - PT/OT consult for education and assistance. - Social work consult for discharge planning -patient lives alone; will need assistance postoperative. This may necessitate SNF. Reports that her son lives local - Prescribed analgesics as needed - DVT prophylaxis: Rivaroxaban, bilateral knee high Paresh Hose stockings and SCDs - Anticipation is for discharge to SNF likely. Will see how patient does with PT/OT.
[2023-04-19] MEDS: RIVAROXABAN 10 MG TABLET PO (09:22)
[2023-04-19] MEDS: SENNOSIDES 1 TAB TABLET 2 TAB PO (09:22)
[2023-04-19] MEDS: ATORVASTATIN CALCIUM 40 MG TABLET PO (09:22)
[2023-04-19] MEDS: AMLODIPINE 10 MG TABLET PO (09:22)
[2023-04-19] MEDS: POTASSIUM CHLORIDE 10 MEQ CAPSULE ER 20 MEQ PO (09:22)
[2023-04-19] MEDS: SODIUM CHLORIDE 0.9 % (FLUSH) 10 ML SYRINGE 5 ML IVF (09:23)
[2023-04-19] MEDS: ACETAMINOPHEN 325 MG TABLET PO ×3 (10:09→23:23)
--- NOTE | 2023-04-19 11:13 | PM.IMPN1 ---
Progress Note: A&P Assessment and plan (1) Fracture of femoral neck, left, closed: Problem details: DOI: 04/16/2023, DOS 04/18/23 Status: Acute (2) Status post hip surgery: Problem details: POD 1 left hip ORIF, femoral neck system Status: Acute (3) Cerebral vascular disease: Problem details: -recurrent lacunar strokes, recurrent microvascular disease events -ICA mild stenosis with aneurysm (stable, MR due in 04/10) -encephalomalacia -cognitive dysfunction -MRA 03/2021 left internal carotid aneurysm, Need FU MRA in 04/10 followed by [facility] Status: Acute (4) Hypertension: Problem details: -continue amlodipine -add prn metoprolol Status: Chronic (5) Stenosis of carotid artery: Problem details: less than 50% adv aneurysm stable. repeat scan in 3 years to monitor - note by NS in 05/07 Status: Chronic (6) History of multiple cerebrovascular accidents (CVAs): Problem details: multiple lacunar strokes and encephalomalacia on MRI 03/2021 Echo 2019 FINAL IMPRESSION: Technically very difficult study. Limited views are obtained. Overall, normal LV systolic size and function with no significant valve disease. Negative bubble study indicating absence of patent foramen ovale. Status: Chronic (7) Mild intermittent asthma: Problem details: prn use Status: Acute (8) Prediabetes: Problem details: A1C <5 Status: Chronic Subjective Date Seen: 04/19/23 Interval history: Daily Progress Note - Hospital Medicine POST OP DAY #1 Day #2 04/18/23 -Left femur open reduction and internal fixation SURGEON: Clinton Gamboa MD ANESTHESIA: Spinal EBL: 50 mL COMPLICATIONS: None evident CC: LEFT HIP FRACTURE OVERNIGHT UPDATES FROM STAFF & MED, LAB, IMAGING UPDATES did well. no major issues. is weight bearing with 1A, walker. Objective: hilarious. laughing and making jokes about her cat. reports pain is well controlled. Vitals: see above Lungs: Clear. Cardiac: S1S2. MSK: left hip - no major hematoma or bleeding. Disposition/Potential discharge - Likely to return to previous living situation after acute rehab. Today I spent 50minutes seeing the patient, reviewing Expanse and EPIC notes/diagnostics, discussing the care plan with our care time that includes social work, PT/OT, pharmacy, RT, skilled Exam Const: Vital Signs, click to edit/add: Vital Signs - 24 hr 04/18/23 11:15 04/18/23 11:30 04/18/23 11:31 Temperature Pulse Rate 86 88 89 Pulse Rate [Left P ulse Oximeter] Respiratory Rate Blood Pressure 151/93 H Blood Pressure [Le ft Arm] Pulse Oximetry 94 94 95 Oxygen Delivery Me thod Oxygen Flow Rate 04/18/23 11:32 04/18/23 12:00 04/18/23 12:01 Temperature Pulse Rate 86 91 92 Pulse Rate [Left P ulse Oximeter] Respiratory Rate Blood Pressure 157/104 H Blood Pressure [Le ft Arm] Pulse Oximetry 94 90 93 Oxygen Delivery Me thod Oxygen Flow Rate 04/18/23 12:44 04/18/23 12:44 04/18/23 14:55 Temperature 99.1 F 98.1 F Pulse Rate 80 Pulse Rate [Left P ulse Oximeter] 77 Respiratory Rate 18 16 Blood Pressure 107/66 Blood Pressure [Le ft Arm] 148/104 H Pulse Oximetry 95 94 92 Oxygen Delivery Me thod Room Air Room Air Room Air Oxygen Flow Rate 04/18/23 15:00 04/18/23 15:05 04/18/23 15:10 Temperature Pulse Rate 81 78 75 Pulse Rate [Left P ulse Oximeter] Respiratory Rate 15 16 16 Blood Pressure 95/68 106/72 110/70 Blood Pressure [Le ft Arm] Pulse Oximetry 93 94 93 Oxygen Delivery Me thod Oxygen Flow Rate 04/18/23 15:15 04/18/23 15:20 04/18/23 15:25 Temperature 97.9 F Pulse Rate 72 75 76 Pulse Rate [Left P ulse Oximeter] Respiratory Rate 18 16 14 Blood Pressure 109/80 110/57 L 110/70 Blood Pressure [Le ft Arm] Pulse Oximetry 94 95 94 Oxygen Delivery Me thod Oxygen Flow Rate 04/18/23 15:30 04/18/23 15:45 04/18/23 16:00 Temperature 97.0 F L 97.0 F L Pulse Rate 73 Pulse Rate [Left P ulse Oximeter] 63 Respiratory Rate 18 18 Blood Pressure Blood Pressure [Le ft Arm] 120/76 121/82 Pulse Oximetry 92 91 Oxygen Delivery Me thod Room Air Room Air Nasal Cannula Oxygen Flow Rate 1 04/18/23 16:00 04/18/23 16:15 04/18/23 16:30 Temperature 97.0 F L 97.0 F L 97.0 F L Pulse Rate Pulse Rate [Left P ulse Oximeter] 68 68 66 Respiratory Rate 18 18 18 Blood Pressure Blood Pressure [Le ft Arm] 125/83 133/78 112/84 Pulse Oximetry 93 91 93 Oxygen Delivery Me thod Room Air Room Air Room Air Oxygen Flow Rate 04/18/23 17:00 04/18/23 17:00 04/18/23 17:30 Temperature 97.5 F L 97.5 F L Pulse Rate 73 Pulse Rate [Left P ulse Oximeter] 60 63 Respiratory Rate 18 18 Blood Pressure Blood Pressure [Le ft Arm] 144/79 H 133/90 H Pulse Oximetry 93 91 Oxygen Delivery Me thod Nasal Cannula Nasal Cannula Oxygen Flow Rate 1 1 04/18/23 18:30 04/18/23 19:30 04/18/23 21:30 Temperature 97.5 F L 97.4 F L 97.4 F L Pulse Rate Pulse Rate [Left P ulse Oximeter] 75 95 101 H Respiratory Rate 18 18 16 Blood Pressure Blood Pressure [Le ft Arm] 132/99 H 126/89 128/77 Pulse Oximetry 93 93 95 Oxygen Delivery Me thod Room Air Room Air Room Air Oxygen Flow Rate 04/18/23 23:00 04/18/23 23:00 04/18/23 23:00 Temperature 97.8 F Pulse Rate Pulse Rate [Left P ulse Oximeter] 58 L Respiratory Rate 16 Blood Pressure Blood Pressure [Le ft Arm] 127/78 Pulse Oximetry 92 92 92 Oxygen Delivery Me thod Room Air Room Air Oxygen Flow Rate 04/18/23 23:00 04/19/23 03:00 04/19/23 09:20 Temperature 97.5 F L Pulse Rate 49 L Pulse Rate [Left P ulse Oximeter] 81 Respiratory Rate 17 16 Blood Pressure Blood Pressure [Le ft Arm] 131/85 Pulse Oximetry 91 94 Oxygen Delivery Me thod Room Air Room Air Oxygen Flow Rate 04/19/23 09:20 Temperature 98.5 F Pulse Rate Pulse Rate [Left P ulse Oximeter] 83 Respiratory Rate 16 Blood Pressure Blood Pressure [Le ft Arm] 153/129 H Pulse Oximetry 94 Oxygen Delivery Me thod Room Air Oxygen Flow Rate Labs Labs: Laboratory Results - last 24 hr 04/18/23 04/18/23 04/19/23 11:00 11:46 06:11 WBC 7.37 RBC 4.39 Hgb 12.8 Hct 37.7 MCV 86 MCH 29 MCHC 34 Plt Count 245 INR 1.02 Sodium 138 137 Potassium 3.4 L 3.7 Chloride 106 Carbon Dioxide 22 Anion Gap 10 BUN 12 13 Creatinine 0.7 0.6 Estimated Creat Clear 40.81 40.81 Estimated GFR 92 96 Glucose 93 Hemoglobin A1c 4.87 Calcium 9.5 Total Bilirubin 1.3 AST 20 ALT 15 Alkaline Phosphatase 102 Total Protein 7.6 Albumin 3.9 Triglycerides 122 Cholesterol 227 H LDL Cholesterol, Calc 164 H HDL Cholesterol 39 L Ethyl Alcohol < 0.01 L Lab Acknowledgement Test Added
[2023-04-19] MEDS: METOPROLOL TARTRATE 25 MG TABLET PO ×3 (12:51→23:24)
--- NOTE | 2023-04-19 13:30 | PC.SOCIAL ---
Discharge planning- Met with pt to discuss discharge plans. Pt is in agreement to complete a Short-term rehab stay. Pt is aware that due to her insurance coverage she would have to go to a [employer] contracted SNF. Pt's first choice is [facility] in [place] and second choice would be the [facility] at [place]. Phone call to Cheng in admissions at [facility]. Cheng informs there is an opening and she will review the referral. Faxed referral to [facility] at [phone]. Received a phone call back confirming that [facility] can accept pt. [facility] will submit the prior authorization to pt's insurance. Provided update to charge nurse and pt. Social work will follow up as needed.
--- NOTE | 2023-04-19 18:55 | PC.NURSE ---
End of shift.. Patient is alert and orientated... Ax1 w/ RW. Continent throughout the day of bladder and bowel 1x- large loose BM diarrhea.. held stool softeners. Up in the chair throughout the day watching TV. L hip dressing CDI with no drainage active ice on throughout the day. Awaiting placement.. Needs follow up with who is going to take car eof her cat Patient advocate to follow and help arrange this. Metroprolol held this evening HR was low per parameters.
[2023-04-19] MEDS: OXYCODONE 5 MG TABLET PO ×3 (19:54→23:23)
[2023-04-20 03:00] VITALS: BP 116/70; PULSE 48; RESP 16; TEMP 36.3; O2SAT 93
--- NOTE | 2023-04-20 06:29 | PC.NURSE ---
End of shift [id number]: Patient reporting pain to left hip, utilized PRN tylenol, prn oxycodone and ice packs which were effective for pain. Transfers with minimal assist x 1, ambulates with walker and gait belt with SBA. CMS intact to left lower extremity. Dressing clean, dry and intact.
[2023-04-20 07:00] VITALS: BP 139/98; PULSE 61; RESP 16; TEMP 36.6; O2SAT 96
[2023-04-20] MEDS: OMEPRAZOLE 20 MG CAPSULE DR PO (07:36)
[2023-04-20] MEDS: OXYCODONE 5 MG TABLET PO ×2 (07:44→09:58)
[2023-04-20] MEDS: METOPROLOL TARTRATE 25 MG TABLET PO ×2 (08:02→12:46)
[2023-04-20] MEDS: AMLODIPINE 10 MG TABLET PO (09:59)
[2023-04-20] MEDS: RIVAROXABAN 10 MG TABLET PO (10:00)
[2023-04-20] MEDS: ATORVASTATIN CALCIUM 40 MG TABLET PO (10:00)
[2023-04-20] MEDS: POTASSIUM CHLORIDE 10 MEQ CAPSULE ER 20 MEQ PO (10:00)
[2023-04-20] MEDS: SENNOSIDES 1 TAB TABLET 2 TAB PO (10:01)
--- NOTE | 2023-04-20 10:10 | PM.ORPN ---
Subjective Subjective Date Seen: 04/20/23 Principal diagnosis: Status postop day 2, left hip, femoral neck ORIF Interval history: Patient reports doing okay, pain is more present today than it was yesterday. Also complaining of left knee pain, which is from an old fall from horse injury, nothing acute. No acute events over night. Pain managed with scheduled and PRN medications, ice. DVT prophylaxis: Rivaroxaban, bilateral thigh high Paresh stockings, SCDs, walking. Denies fevers, chills, aches, N/V, CP, SOB/AMBROSE, or lightheadedness. Ortho Exam Narrative Exam Narrative: -Patient appears comfortable in recliner; no apparent acute distress -Alert and oriented times 3 -Operative hip mildly swollen; soft tissues supple; no obvious erythema. Warmth appropriate -Surgical dressing clean, dry, intact; no obvious drainage, no erythematous streaking peripheral to the bandage -Bilateral calves soft and supple; no significant swelling, edema, tenderness, erythema, discoloration, warmth, or palpable cords -2+ DP/PT pulses, intact dermatomes and myotomes distally (5/5 strength). No numbness about the lateral femoral cutaneous nerve distribution. Const Vital Signs, click to edit/add: Vital Signs - 24 hr 04/19/23 11:55 04/19/23 11:55 04/19/23 15:00 Temperature 99.1 F 98.0 F Pulse Rate [Left Pulse Oximeter] 85 68 Respiratory Rate 16 18 Blood Pressure [Left Arm] 129/83 126/75 Pulse Oximetry 96 96 95 Oxygen Delivery Method Room Air Room Air 04/19/23 15:00 04/19/23 15:00 04/19/23 16:00 Temperature Pulse Rate [Left Pulse Oximeter] Respiratory Rate Blood Pressure [Left Arm] Pulse Oximetry 95 95 98 Oxygen Delivery Method Room Air Room Air 04/19/23 19:00 04/19/23 23:00 04/19/23 23:00 Temperature 98.1 F 97.9 F Pulse Rate [Left Pulse Oximeter] 70 73 Respiratory Rate 16 18 Blood Pressure [Left Arm] 149/92 H 155/100 H Pulse Oximetry 92 92 92 Oxygen Delivery Method Room Air Room Air Room Air 04/20/23 03:00 04/20/23 07:00 Temperature 97.4 F L Pulse Rate [Left Pulse Oximeter] 48 L Respiratory Rate 16 Blood Pressure [Left Arm] 116/70 Pulse Oximetry 93 96 Oxygen Delivery Method Room Air Room Air Assessment and Plan Assessment and plan (1) Fracture of femoral neck, left, closed: Problem details: DOI: 04/16/2023, DOS 04/18/23 Status: Acute (2) Status post hip surgery: Problem details: POD 2 left hip ORIF, femoral neck system Status: Acute (3) Cerebral vascular disease: Problem details: -recurrent lacunar strokes, recurrent microvascular disease events -ICA mild stenosis with aneurysm (stable, MR due in 04/10) -encephalomalacia -cognitive dysfunction -MRA 03/2021 left internal carotid aneurysm, Need FU MRA in 04/10 followed by [facility] Status: Acute (4) Hypertension: Problem details: -continue amlodipine -add prn metoprolol Status: Chronic (5) Stenosis of carotid artery: Problem details: less than 50% adv aneurysm stable. repeat scan in 3 years to monitor - note by NS in 05/07 Status: Chronic (6) History of multiple cerebrovascular accidents (CVAs): Problem details: multiple lacunar strokes and encephalomalacia on MRI 03/2021 Echo 2019 FINAL IMPRESSION: Technically very difficult study. Limited views are obtained. Overall, normal LV systolic size and function with no significant valve disease. Negative bubble study indicating absence of patent foramen ovale. Status: Chronic (7) Mild intermittent asthma: Problem details: prn use Status: Acute (8) Prediabetes: Problem details: A1C <5 Status: Chronic Plan - Complete 23 hour perioperative antibiotics. - PT/OT consult for education and assistance. - Social work consult for discharge planning- SNF determined. - Prescribed analgesics as needed - DVT prophylaxis: rivaroxaban, bilateral thigh high Paresh Hose stockings and SCDs - Anticipation is for discharge to [facility], 04/20/23 if the patient remains medically stable, pain is controlled, and they are safe with mobilization.
[2023-04-20] MEDS: SODIUM CHLORIDE 0.9 % (FLUSH) 10 ML SYRINGE 5 ML IVF (10:59)
[2023-04-20] MEDS: ONDANSETRON 2 MG/ML inj 4 MG IVP (10:59)
[2023-04-20 11:00] VITALS: BP 130/75; PULSE 52; RESP 20; TEMP 36.8; O2SAT 96
[2023-04-20] MEDS: ONDANSETRON ODT 4 MG TAB PO (11:18)
--- NOTE | 2023-04-20 11:25 | PC.SOCIAL ---
Addendum entered by JERRY Daly 04/20/23 11:30: Phone call to pt's son (Desmond) to provide an update on discharge plans per pt's request. Original Note: Discharge planning- Received a phone call from Cheng in admissions at [facility] and the prior authorization was received. [facility] can take pt today. Met with pt and provided update and discussed transportation. Pt does not have any family that can transport her and requests to go to [facility] via non-emergency ambulance. Pt accepts the responsibility of the cost of the transportation. Completed paperwork for transport. Updated charge nurse. Transportation was set for between 12:15 and 1:00 pm. Provided update to Cheng at [facility] on transport time. Completed preadmission screening. Confirmation #[id number]. Faxed [facility] to [facility]. Social work will follow up as needed.
[2023-04-20 13:37] VITALS: BP 130/75; PULSE 52; RESP 20; TEMP 36.8
--- NOTE | 2023-04-20 13:50 | PC.NURSE ---
Patient alert and oriented. Patient transfers and ambulates with stand by assist, walker and gait belt. Tolerated regular diet. Eats independently. Rec'd PRN Oxycodone at 0745 and 1000 for pain in left hip. Oxycodone effective. Orders for discharge rec'd. Patient discharged at 1336 to [place] via ambulance. Report given to Gail at [place].
--- NOTE | 2023-05-06 11:42 | P.DS_ITS ---
DS: Providers Provider Date Seen: 04/20/23 Date of admission: 04/18/23 12:34 Primary care physician: Ysabel Urbina MD Admitting Clinician: Nel Hurtado MD Consults: 04/18/23 14:30 Consult to Physical Therapy [CONS] Routine Comment: Reason(s) for PT Consult:: Recent Falls Any Restrictions?:: See Comment 04/18/23 15:35 Consult to Occupational Therapy [CONS] Routine Comment: Reason(s) for OT Consult:: Evaluate and Treat Any Restrictions?:: See Comment Comment: evaluate and treat Consult to Physical Therapy [CONS] Routine Comment: Reason(s) for PT Consult:: Evaluate and Treat Any Restrictions?:: Wt Bearing as Tolerated Consult to Rocket Motor Tester [CONS] Routine Comment: Reason for Consult:: Discharge Planning Needs Attending Physician on discharge: Izzy Hurtado MD Date of Discharge: 04/20/23 DS: Diagnosis Discharge Diagnosis (1) Fracture of femoral neck, left, closed: Status: Acute Problem details: DOI: 04/16/2023, DOS 04/18/23 (2) History of open reduction and internal fixation (ORIF) procedure: Status: Acute Problem details: Left femur open reduction and internal fixation () (3) Cerebral vascular disease: Status: Acute Problem details: -recurrent lacunar strokes, recurrent microvascular disease events -ICA mild stenosis with aneurysm (stable, MR due in 04/10) -encephalomalacia -cognitive dysfunction -MRA 03/2021 left internal carotid aneurysm, Need FU MRA in 04/10 -followed by [facility] (4) Hypertension: Status: Chronic Problem details: -continue amlodipine -add prn metoprolol (5) Stenosis of carotid artery: Status: Chronic Problem details: less than 50% adv aneurysm stable. repeat scan in 3 years to monitor - note by NS in 05/07 (6) History of multiple cerebrovascular accidents (CVAs): Status: Chronic Problem details: multiple lacunar strokes and encephalomalacia on MRI 03/2021 Echo 2019 FINAL IMPRESSION: Technically very difficult study. Limited views are obtained. Overall, normal LV systolic size and function with no significant valve disease. Negative bubble study indicating absence of patent foramen ovale. DS: Summary Hospital Course Hospital Course: Pt was admitted for a hip fracture. She had an uneventful ORIF completed. She went to rehab on post-op day 2. She has a long cerebrovascular history but this was all stable during her stay. Her blood pressure was high and difficult to control. She was sent out on metoprolol - at hospital f/u it can decided if this should be a medical terminologist m edication. Her VTE prophylaxis is aspirin 81 mg BID for a month and then she should return to 1 aspirin, 81mg, a day for life. Status at Discharge Functional status at discharge: uses cane/walker Overall status at discharge: patient is progressing back to baseline Time Spent with Patient Time attestation: Total time spent providing and/or coordinating discharge services: Time spent: Greater than 30 minutes DS: Data Data Completed and Pending Completed studies during hospitalization: Procedures Reposition Left Upper Femur with Internal Fixation Device, Open Approach (04/18/23) Discharge Plan Discharge Disposition: [facility] Date of Admission: 04/18/23 12:34 Attending Provider on Discharge: Nel Hurtado Consulting Providers: Clinton Gamboa Primary Care Provider: Ysabel Urbina Discharge Medications: New sennosides-docusate sodium [Senna-S] 8.6-50 mg tablet 1 - 4 tab-cap PO BID PRN (Reason: constipation) Qty: 60 0RF Rx Instructions: Hold medication if experiencing loose stools. aspirin 81 mg tablet,delayed release (DR/EC) 81 mg PO BID Qty: 50 0RF Rx Instructions: Medication to help prevent blood clots postoperatively; take TWICE daily. acetaminophen 500 mg capsule 500 - 1,000 mg PO Q6H MDD 4000mg PRNQty: 100 0RF oxycodone 5 mg tablet 2.5 - 5 mg PO Q4-6H MDD 6 PRN (Reason: pain) Qty: 42 0RF Rx Instructions: Take as needed for postop pain: 2.5mg mild pain, 5mg moderate-severe pain; wean as tolerated. metoprolol tartrate 25 mg tablet 12.5 mg PO BID Qty: 30 0RF Rx Instructions: hold for SBP less than 110 and/or pulse less than 60 Continued multivitamin [Daily Multi-Vitamin] Tablet 1 tab PO QAM amlodipine 10 mg tablet 10 mg PO QDAY Qty: 90 4RF omeprazole 20 mg capsule,delayed release(DR/EC) 20 mg PO QDAY Qty: 90 4RF cholecalciferol (vitamin D3) 25 mcg (1,000 unit) tablet,chewable 2,000 unit PO DAILY Bacillus subtilis-inulin 1.5 billion cell-1 gram tablet,chewable 2 tab PO atorvastatin 40 mg tablet 40 mg PO DAILY potassium chloride 20 mEq tablet extended release 20 meq PO DAILY Qty: 90 1RF Held aspirin 81 mg tablet,chewable 81 mg PO QDAY Hold Instructions: Resume on 05/25/23. you will be taking aspirin twice daily for 5 weeks; then you can go back to your daily aspirin. Discharge Orders: Discharge Order (Routine); Ordered 04/20/23 Ordered By: James Kelly Consulting provider completed their portion of the discharge: Yes Activity Level: Activity as Tolerated, Weight Bearing as Tolerated, Use Cane and Use Walker Activity Detail: Wound: ?May remove original surgical dressing after 1 week. Remove sooner if dressing integrity is in question. ?No immersing wound in water; showering okay; light scrub with your hand and body soap, rinse, dab dry ?Sutures are under the skin, will dissolve; allow surgical glue to come off naturally; do not scrub the wound or apply ointments/lotions ?Call our office with any redness that streaks, excessive drainage from the wound, or wound gapping. Ice/Elevate: ?Ice as needed for swelling and discomfort (cryocuff or ice pack); elevate frequently above the heart LATIA socks: ?Wear for 1 month, remove for 1 hour 3 times per day ?These are frustrating to take on/off, but are important for blood clot prevention for 1 month after surgery Blood Clot Prevention (DVT): ?Medication: Rivaroxaban, and transition to 81 mg aspirin by mouth twice daily (total one month of protection). Driving: ?Do not drive while taking narcotic pain medication ?Anticipate 4-6 weeks no driving if operative leg is driving leg Dental: ?No elective dental work for 6 months post-op. If there is an urgent/emergent dental need, contact our office for an antibiotic prescription. Smoking/Alcohol: ?Do not smoke; do no drink alcohol especially when taking postoperative oral narcotic medication Seek Care from you Primary Care Provider if you experience the following issues in the postoperative phase and beyond: ?Bacterial infections such as: pneumonia, bacterial skin infection (cellulitis), UTI, high fever, chills unrelated to the operative body part - call your primary care physician urgently for treatment in hopes to protect your health and the metal implant. Referrals: ?PT, OT per patient preference - evaluate treat total hip arthroplasty protocol (gait training, ROM, ADLs) Follow up: ?Ortho surgeon follow-up in 6 weeks; repeat radiographs AP pelvis, cross-table lateral operative hip ?PA-C visit in 1-2 weeks or once discharged from SNF *If there are any acute concerns regarding your surgery, please call our orthopedic clinic ([phone]) Follow Up Appointments: [facility] [Outside] [facility] [Outside] (Patient being discharged to [facility].) Clinton Gamboa MD [Staff Physician] - 05/09/23 (f/u ORIF, left hip. DOS 04/18/23) Ysabel Urbina MD [Primary Care Provider] - 05/23/23 Admit to: SNF Discharge Potential: Good Length of Stay: <30 days Can use facility standing orders?: Yes Code Status: Full Code TEDs: Bilateral Knee Rehab Potential: Good Therapy: Physical Therapy and Occupational Therapy Therapy Orders: Evaluate and Treat and Gait Training Therapy Orders Additional Information: ORIF Left hip; DOI 04/16/23 (fall at home). DOS 04/18/23 Oxygen: No Urinary Catheter: No Orders are good >30 days: Yes
== END 2023-04-20 13:36 | DRG 482 ==
LOC: ED 11:07 → MEDSURG 11:45
PROVIDERS: Orthopaedic Surgery Sports Medicine; Admitting Provider Family Medicine; Emergency Provider Family Medicine; PCP Family Medicine; Visit Provider Family Medicine
PROC: 0QS704Z Reposition Left Upper Femur with Internal Fixation Device, Open Approach (ICD-10-PCS; principal; 2023-04-18 14:00)
DX: S72.002A Fracture of unspecified part of neck of left femur, initial encounter for closed fracture (principal); W10.9XXA Fall (on) (from) unspecified stairs and steps, initial encounter; Y92.019 Unspecified place in single-family (private) house as the place of occurrence of the external cause; I10 Essential (primary) hypertension; Z86.73 Personal history of transient ischemic attack (TIA), and cerebral infarction without residual deficits; K21.9 Gastro-esophageal reflux disease without esophagitis; J45.20 Mild intermittent asthma, uncomplicated; M85.80 Other specified disorders of bone density and structure, unspecified site; I65.29 Occlusion and stenosis of unspecified carotid artery; I67.1 Cerebral aneurysm, nonruptured; E78.5 Hyperlipidemia, unspecified
CPT/HCPCS: 01210; 36415; 71045; 73501; 73502; 76000; 76942; 80053; 80061; 81001; 82077; 82565; 83036; 84132; 84295; 84520; 85025; 85027; 85610; 93005; 94761; 97110; 97116; 97162; 97165; 99100; 99284; 99285; A9270; C1713; C9113; J0690; J1100; J1170; J2250; J2405; J2704; J2795; J3010; J3480; J3490; J7120

== ENCOUNTER 2023-04-20 13:40 | Outpatient (CLI) | payer OTHER, SELFPAY | END 2023-04-20 13:41 | disposition home or self-care (01) | LOC: AMB 05-20 02:08 | PROVIDERS: PCP Family Medicine; Visit Provider Family Medicine | DX: Z99.3 Dependence on wheelchair (principal) | CPT/HCPCS: A0425; A0428 ==

== ENCOUNTER 2023-12-17 13:01 | Outpatient (RCR) | payer SELFPAY | END 2024-12-16 10:20 | disposition home or self-care (01) | LOC: MOW 13:01 | PROVIDERS: PCP Family Medicine; Visit Provider Family Medicine | DX: Z76.0 Encounter for issue of repeat prescription (principal) | CPT/HCPCS: S5170 ==

== ENCOUNTER 2024-03-30 09:22 | Emergency (ER) | payer OTHER, SELFPAY ==
[2024-03-30 09:25] VITALS: BP 156/99; PULSE 70; RESP 18; TEMP 36.6; O2SAT 98; BMI 26.4
[2024-03-30 09:52] LABS: Appearance Urine Cloudy (Clear); Bilirubin Urine 1+ (Negative); Blood Urine 3+ (Negative); Color Urine Yellow (Yellow); Glucose Urine Negative (Negative); Ketones Urine Trace (Negative); Leukocyte Esterase Urine 3+ (Negative); Nitrite Urine Positive (Negative); Protein Urine 1+ (Negative); Specific Gravity Urine 1.025 (1.000-1.030); pH Urine 6.5 (5.0-8.5)
[2024-03-30 10:02] LABS: Bacteria Urine Many; Squamous Epithelial Cell Urine Many (None-Few); WBC Urine 50-100 (0-5)
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
--- OUTSIDE RECORDS SUMMARY | 2024-03-30 10:22 | XMS_ITS | Clinical Summary ---
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 [facility] Allergies Active Allergy Reactions Criticality Noted Date Comments Egg White (Egg Protein) Itching 07/29/2004 Penicillins Nausea And Vomiting 04/15/2004 Simvastatin Myalgias 11/15/2007 Medications Medication Sig Dispensed Refills Start Date End Date Status Multiple Vitamins-Minerals (MULTIVITAMIN OR) Take 1 tablet by mouth daily (every 24 hours). 100 11/15/2007 Active hydrOXYzine pamoate (VISTARIL) 50 MG capsule TK ONE C PO QID 0 04/30/2017 Active aspirin 81 MG chewable tablet Take 81 mg by mouth. 06/10/2019 Active losartan (COZAAR) 100 MG tabletIndications:Esse ntial hypertension (HRC) Take 1 Tablet by mouth daily. 90 Tablet 3 06/12/2019 Active atorvastatin (LIPITOR) 20 MG tabletIndications:Hype rlipidemia, unspecified hyperlipidemia type (HRC) Take 1 Tablet by mouth daily. 90 Tablet 3 04/21/2020 Active chlorthalidone (HYGROTON) 25 MG tabletIndications:Esse ntial hypertension (HRC) Take 1 Tablet by mouth daily. 90 Tablet 3 04/21/2020 Active ALBUterol sulfate HFA 108 (90 Base) MCG/ACT inhalerIndications:Mil d intermittent asthma without complication (HRC) Inhale 2 Puffs every 4 hours as needed. 18 g 6 04/21/2020 Active amLODIPine (NORVASC) 10 MG tabletIndications:Esse ntial hypertension (HRC) Take 1 Tablet by mouth daily. 90 Tablet 3 01/22/2021 Active KLOR-CON M20 20 MEQ controlled release tablet TAKE 1 TABLET BY MOUTH EVERY DAY 90 Tablet 2 05/05/2021 Active omeprazole (PRILOSEC) 20 MG capsuleIndications:Gas troesophageal reflux disease, unspecified whether esophagitis present TAKE 1 CAPSULE BY MOUTH EVERY DAY 30 Capsule 06/05/2022 Active Active Problems Problem Noted Date Diagnosed Date Hypokalemia 01/26/2021 Prediabetes 04/21/2020 Asthma, mild intermittent 05/19/2017 Adverse effect of antihyperl ipidemic and antiarteriosclerotic drugs, subsequent encounter 11/15/2007 Overview (06/09/2021): See Allergies for additional details. Essential hypertension 04/15/2004 Overview (03/09/2017): LW Onset: 26Duj43 ; Hypertension Hyperlipidemia 04/15/2004 Overview (02/19/2016): LW Onset: 53Ljq28 Allergic rhinitis 04/15/2004 Overview (03/09/2017): LW Onset: 86Yli66 ; Rhinitis Allergic NOS Resolved Problems Problem Noted Date Diagnosed Date Resolved Date Impaired fasting glucose 08/27/201911/2019 Cerebrovascular accident (CVA) 08/27/2019 04/21/2020 Positive FIT (fecal immunochemical test) 01/17/2018 04/21/2020 Endometriosis 04/15/2004 04/21/2020 Overview (03/09/2017): LW Onset: 43Yhe54 ; Endometriosis NOS Immunizations Name Administration Dates Next Due Flu Vac Preserv Free (3+yrs) 05/05/2005 HepA-HepB ([place], 18+ yrs) 07/24/2013,01/13/20 13,12/12/2012 Influenza IIV3 (Trivalent) F dylan Highdose, 65+ Yrs (81647) 03/22/2018,06/16/2017 Influenza IIV4 (Quadrivalent) 0.5mL (68982) 03/18,04/27/2016,04/18/2015 Influenza IIV4 (Quadrivalent ) Fluad, 65+ Yrs 04/21/2020 Moderna Monovalent 12+ 12/02/2020,11/04/2020 PCV13 (Prevnar) 01/04/2018 PPSV23 (Pneumovax) 10/03/2019,06/03/2011, 005 TDAP (ADACEL) 11/15/2007 Td 01/29/1998 Tdap 06/03/2011 Zoster (Zostavax) 07/14/2012 Zoster RZV (Shingrix) 10/03/2019,03/30/2019 Family History Medical History Relation Name Comments Cancer, Breast Negative Family History Social History Tobacco Use Types Packs/Day Years Used Date Smoking Tobacco: Never Smokeless Tobacco: Never Alcohol Use Standard Drinks/Week Comments Not Currently 0 (1 standard drink = 0.6 oz pur e alcohol) PHQ-2 Answer Date Recorded PHQ-2 Score 0 01/22/2021 Sex and Gender Information Value Date Recorded Sex Assigned at Not on file Gender Identity Not on file Sexual Orientation Not on file Last Filed Vital Signs Vital Sign Reading Time Taken Comments Blood Pressure 119/85 02/04/2021 7:27 AM CDT Pulse 82 02/04/2021 7:27 AM CDT Temperature 36.6 ??C (97.9 ??F) 12/14/2005 1 :01 PM CDT ORAL C: 36.6 C Respiratory Rate - - Oxygen Saturation 94% 12/15/2004 9:4 0 AM CDT Inhaled Oxygen Concentration - - Weight 64.4 kg (142 lb) 02/04/2021 7:27 AM CDT Height 157.5 cm (5' 2) 04/21/2020 10:3 5 AM CDT Body Mass Index 25.97 04/21/2020 10:35 AM CDT Plan of Treatment Health Maintenance Due Date Last Done Comments MTM Covered 1950 Dexa 2016 Prediabetes: HGBA1C 04/21/2021 04/21/2020, 06/27/2019, 10/24/2006 DTaP/Tdap/Td (3 - Tdap) 06/03/2021 06/03/20 11, 11/15/2007, 01/29/1998 FIT Colon Cancer Screening 12/09/202112/09, 10/31/2019, 01/12/2018 Medicare Annual Wellness Visit 01/22/2022 01/22/2021, 06/12/2019 Mammogram 05/04/2022 05/04/2021, 06/17, 01/05/2018, Additional history exists COVID-19 Vaccine ( season) 2024 12/02/2020, 11/04/2020 Influenza (#1) 2024 04/21/2020, 03/18, 03/22/2018, Additional history exists Cholesterol 04/21/2025 04/21/2020, 06/17, 05/19/2017, Additional history exists HepA Aged Out 07/24/2013, 12/17, 12/12/2012 No longer eligible based on patient's age to complete this topic HepB Completed 07/24/2013, 12/17, 12/12/2012 Pneumococcal 65+ Yrs Completed 10/03/2019, 01/04/2018, 06/03/2011, Additional history exists Zoster/Shingles Completed 10/03/2019, 03/18, 07/14/2012 Hep C Screening (Preventive Services) Completed 04/21/2020 Hib Aged Out No longer eligi ble based on patient's age to complete this topic IPV (Polio) Aged Out No longer eligi ble based on patient's age to complete this topic MCV4 Aged Out No longer eligi ble based on patient's age to complete this topic Procedures Procedure Name Priority Date/Time Associated Diagnosis Comments MM MAMMOGRAM SCREENING BILAT W 3D MONIQUE W CAD Routine 05/04/2021 1:38 PM CDT Visit for screening mammogram FIT,OCCULT BLOOD, STOOL Routine 12/09/2020 8:00 AM CDT Screening for colon cancer HEPATITIS C ANTIBODY, WITH REFLEX Routine 04/21/2020 11:16 AM CDT Need for hepatitis C screening test LIPID PANEL & DIRECT LDL (IF NEEDED) Routine 04/21/2020 11:16 AM CDT Hyperlipidemia, unspecified hyperlipidemia type HGB A1C Routine 04/21/2020 11:15 AM CDT Prediabetes from Last 3 Months or Most Recently Relevant to Health Maintenance Results * (ABNORMAL) MM Mammogram Screening Bilat W 3D Monique W CAD (05/04/2021 1:38 PM CDT) Anatomical Region Laterality Modality Breast Bilateral Mammography Impressions 05/04/2021 2:01 PM CDT : ACR BI-RADS Category 0: Need Additional Imaging Evaluation RECOMMENDATION: Spot Tomosynthesis The results and recommendations of this examination will be communicated to the patient and the imaging center will attempt to schedule any recommended follow up with the patient. As a result of the Century Cures Act, all medical imaging exams are released immediately to [facility]. ??You may be viewing this report before our scheduling staff and your referring provider. ??We will attempt to contact you by phone within one business day of this report to schedule any recommended follow-up exams. ??If you have questions, please contact your health care provider. Narrative 05/04/2021 2:01 PM CDT MM MAMMOGRAM SCREENING BILAT W 3D MONIQUE W CAD performed on 05/04/21 Compared to: 06/27/2019 MM Mammogram Screening Bilat W 3D Monique W CAD, 01/05/2018 MM Mammogram Screening Bilat W CAD, and 11/15/2007 MM Mammogram Screening Bilat W CAD ?? FINDINGS: Bilateral screening mammogram was performed with the assistance of Computer-Aided Detection and breast tomosynthesis. The breasts have scattered areas of fibroglandular density. There is an asymmetry in the left breast on the MLO view in the retroareolar plane at anterior depth. The remainder of the breast tissue is unremarkable. Lottie Godinez DO RAD JOH[facility] * FIT Colon Rectal Cancer Screening (12/09/2020 8:00 AM CDT) FIT Specimen 1 Negative Negative 12/10/2020 2:42 PM CDT [facility] Stool 12/09/2020 8:00 AM CDT 12/09/2020 2:45 PM CDT Enedina Powell PA-C LAB_1 [facility] [address] [address], [facility] [phone] * (ABNORMAL) Lipid Panel - LDLD If Trig High (04/21/2020 11:16 AM CDT) Cholesterol 179 0 - 199 mg/dL 04/21/2020 3:56 PM CDT [facility] Triglyceride 138 <=149 mg/dL 04/21/2020 3:56 PM T [facility] HDL Cholesterol 37(L) >=40 mg/dL 0 3:56 PM T [facility] LDL, Calculated 114 <130 mg/dL 0 3:56 PM T [facility] Non HDL Chol, Calculated 142 mg/dL 04/21/2020 3:56 PM T [facility] Cholesterol/HDL Ratio 4.8 04/21/2020 3:56 PM T [facility] Hours Fasting 12 04/21/2020 3:56 PM CDT [facility] Blood Venipuncture / Unknown 04/21/2020 11:16 AM CDT 04/21/2020 11:16 AM CDT Enedina Powell PA-C LAB_1 [facility] [address] [place] [address], [place] [phone] [facility] [address] [place] [address], [place] [phone] * Hepatitis C Antibody, with Reflex (04/21/2020 11:16 AM CDT) Hepatitis C Antibody Negative (Non Reactive) Negative (Non Reactive) 04/21/2020 3:54 PM CDT [facility] Comment:Antibodies to HCV no t detected. Does not exclude the possiblity of exposure to HCV. Blood Venipuncture / Unknown 04/21/2020 11:16 AM CDT 04/21/2020 11:16 AM CDT Enedina Powell PA-C LAB_1 [facility] [address] * Hemoglobin A1C Glycosylated (04/21/2020 11:15 AM CDT) Hemoglobin A1C 5.6 <=5.6 % 04/22/2020 9:21 AM CDT [facility] Blood Venipuncture / Unknown 04/21/2020 11:15 AM CDT 04/21/2020 11:16 AM CDT Enedina Powell PA-C [facility] [address] [phone] from Last 3 Months or Most Recently Relevant to Health Maintenance Care Teams Trailer Tank Truck Driver Relationship Specialty Start Date End Date Enedina Powell, PAMalindaC [address] [place] [address] PCP - General Physician Guide Dog Instructor 04/21/20
--- OUTSIDE RECORDS SUMMARY | 2024-03-30 10:22 | XMS_ITS | Clinical Summary ---
Author Organization [facility] Address [place], [place] [address] Care Team Providers Care Field Attendant Name Role Phone Lottie Godinez DO Primary Care Provider Unav ailable Allergies Active Allergy Reactions Criticality Noted Date Comments Penicillins Rash,Nausea Only 04/30/2017 Medications Medication Sig Dispensed Refills Start Date End Date Status POTASSIUM ORAL Take 1 tablet by mouth once daily. Active MAGNESIUM ORAL Take 1 tablet by mouth once daily. Active GARLIC ORAL Take 1 tablet by mouth once daily. Active WalkerIndications:Cere brovascular accident (CVA), unspecified mechanism (HC) Walker with front wheels for home use. 1 Device 06/07/2019 Active aspirin chewable 81 mg chewable tabletIndications:Cere brovascular accident (CVA), unspecified mechanism (HC) Take 1 tablet by mouth once daily with a meal. 10 tablet 06/10/2019 Active atorvastatin (LIPITOR) 20 mg tabletIndications:Cere brovascular accident (CVA), unspecified mechanism (HC) Take 1 tablet by mouth at bedtime. 10 tablet 06/09/2019 Active chlorthalidone (HYGROTON) 25 mg tabletIndications:Esse ntial hypertension Take 1 tablet by mouth every morning. 10 tablet 06/10/2019 Active isosorbide mononitrate (IMDUR) 30 mg extended release tablet 24 HourIndications:Essent ial hypertension Take 1 tablet by mouth once daily. 10 tablet 06/10/2019 Active losartan (COZAAR) 100 mg tabletIndications:Esse ntial hypertension Take 1 tablet by mouth once daily. 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 08/18/1958 Encounters Date Type Department Care Team Description 03/29/2024 Orders Only [facility] [address] [place] [address] Paige Francois NP <No scans attached> from Last 3 Months Family History Medical History Relation Name Comments Genetic Other 1 Mom- HTN~Dad- H [place], CVA@78 yrs, arthritis~Sister- HTN~MGM- CAD~MGF- lung CA~PGM- DM, CVA~PGF- lung CA Genetic Other 2 Mom- HTN~Dad- H [place], CVA@78 yrs, arthritis~Sister- HTN~MGM- CAD~MGF- lung CA~cataract - parents~glaucoma - mother - grandmother~PGM- DM, CVA~PGF- lung CA Relation Name Status Comments Other 1 Other 2 Social History Tobacco Use Types Packs/Day Years Used Date Smoking Tobacco: Never Smokeless Tobacco: Never Social Connections Answer Date Recorded Frequency of Communication with Friends and Fami ly Not on file 09/30/2023 Sex and Gender Information Value Date Recorded Sex Assigned at Not on file Gender Identity Not on file Sexual Orientation Not on file Obstetrics History Last Filed Vital Signs Vital Sign Reading Time Taken Comments Blood Pressure 136/91 06/09/2019 10:00 AM [employer] Pulse 89 06/09/2019 10:00 AM [employer] Temperature 36.3 ??C (97.4 ??F) 06/09/2019 8:03 AM CS T Respiratory Rate 18 06/09/2019 8:03 AM [employer] Oxygen Saturation 95% 06/09/2019 8:03 AM [employer]OGR[employer]IC [employer]ATEM[employer]ER Inhaled Oxygen Concentration - - Weight 78 kg (171 lb 15.3 oz) 06/07/2019 4:20 AM [employer]OGR[employer]IC [employer]AT[employer] Height 157.5 cm (5' 2) 04/30/2017 10:25 AM CDT Body Mass Index 31.45 04/30/2017 10:25 AM CDT Plan of Treatment Health Maintenance Due Date Last Done Comments Tdap 1962 Depression screening for age 12+ 1963 Hepatitis C screening for age 18-79 1969 Tetanus booster 1971 Colonoscopy through age 75 1996 Zoster (shingles) series for age 50+ (1 of 2) 2001 Mammogram for age 45-75 11/16/2001 11/16/2000 DEXA/DXA scan for age 65+ 2016 Medicare Wellness for age 65+ 2016 Pneumococcal series for age 65+ (1 of 1 - PCV) 2016 BMI (ht and wt on same day) for age 18+ 04/30/2018 1 COVID-19 vaccine series ( season) 2024 12/02/2020, 11/04/2020 Influenza for age 65+ 03/18/2024 Lipids for age 45-75 06/06/2024 06/06/2019 Procedures Procedure Name Priority Date/Time Associated Diagnosis Comments LIPID PANEL Early AM 06/06/2019 5:19 AM [employer] XR MAMMO SCREENING BILATERAL (IA) Routine 11/16/2000 1:37 PM CDT from Last 3 Months or Most Recently Relevant to Health Maintenance Results * (ABNORMAL) Lipid Panel - Fasting (06/06/2019 5:19 AM [employer]OGRAPHIC PLATEMAKER) CHOLESTEROL,TOTAL 242(H) 100 - 199 mg/dL 06/06/2019 5:51 AM [employer]OGRAPHIC [employer]ATEM[employer]ER [facility] TRIGLYCERIDES 87 <150 mg/dL 06/06/2019 5:51 AM [employer]GR[employer] [facility] HDL CHOLESTEROL 45 >40 mg/dL 9 5:51 AM [employer]GR[employer] [facility] NON-HDL CHOLESTEROL 197(H) <145 mg/dl 06/06/2019 5:51 AM [facility] CHOL/HDL RATIO 5.38(H) <4.50 06/06/2019 5:51 AM [employer]GR[employer] [facility] LDL CHOLESTEROL 180(H) <=130 mg/dL 06/06/2019 5:51 AM [employer]OGR[employer] [facility] PROVIDER ORDERED STATUS RANDOM 06/06/2019 5:51 AM [employer]OGR[employer] [facility] Blood BLOOD SPECIMEN / Unknown Butterfly / Unknown 06/06/2019 5:19 AM [employer] 06/06/2019 5:31 AM [employer]OGR[employer]IC [employer]ATEM[employer]ER Cheryl SNIDER CHEMISTRY [facility] [address] [place] [address] * XR MAMMO SCREENING BILATERAL (11/16/2000 1:37 PM CDT) MAMMOGRAM done [place] [facility] [place] Anatomical Region Laterality Modality BREASTS, Breast Left, Breast Right Bilateral Mammography 11/16/2000 1:37 PM CDT Narrative 12/29/2003 7:34 PM CDT Ordered by an unspecified provider. Other Clinical Staff MAMMO from Last 3 Months or Most Recently Relevant to Health Maintenance Advance Directives * Full Code (Latest Code Status on File) Date Activated Date Inactivated Comments 06/06/2019 1:50 AM 06/09/2019 2:17 PM Care Teams Field Attendant Relationship Specialty Start Date End Date Lottie Godinez DO PCP - General Family Practice 06/05/19
== END 2024-03-30 10:34 | disposition home or self-care (01) ==
PROVIDERS: Emergency Provider Student in an Organized Health Care Education/Training Program; PCP Family Medicine
DX: N39.0 Urinary tract infection, site not specified (principal)
CPT/HCPCS: 81001; 87086; 87186; 99282; 99283

== ENCOUNTER 2024-07-04 15:23 | Outpatient (CLI) | payer MEDICARE, SELFPAY ==
--- NOTE | 2024-07-07 14:24 | ED.NURSE ---
The # that was provided per her brother was in error as that republican called back and informed us that was an [facility] pd officers' #-[phone]. Her phone # is not working. did call brother Desmond and her sister, listed as a contact, both called and message left for brother to call back and sister had a full mailbox. will await calls.
== END 2024-07-04 15:24 | disposition home or self-care (01) ==
LOC: AMB 07-06 10:23
PROVIDERS: PCP Family Medicine; Visit Provider Family Medicine
DX: R53.1 Weakness (principal)
CPT/HCPCS: A0425; A0429

== ENCOUNTER 2024-07-04 15:46 | Emergency (ER) | payer OTHER, SELFPAY ==
[2024-07-04 15:53] VITALS: BP 180/112; PULSE 88; RESP 16; TEMP 37; O2SAT 96; BMI 25.6
[2024-07-04 16:17] LABS: Appearance Urine Cloudy (Clear); Bilirubin Urine Negative (Negative); Blood Urine Negative (Negative); Color Urine Yellow (Yellow); Glucose Urine Negative (Negative); Ketones Urine Negative (Negative); Leukocyte Esterase Urine 1+ (Negative); Nitrite Urine Negative (Negative); Protein Urine Negative (Negative)
[2024-07-04 16:55] LABS: Bacteria Urine Few; Squamous Epithelial Cell Urine Few (None-Few)
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
--- NOTE | 2024-07-04 18:52 | CRLHL7_ITS ---
For Patients: As a result of the Century Cures Act, medical imaging exams and procedure reports are released immediately into your electronic medical record. You may view this report before your referring provider. If you have questions, please contact your health care provider. INDICATION: Diffuse crepitus. TECHNIQUE: Chest 1 view. COMPARISON: Chest radiograph 04/18/2023. FINDINGS: Cardiovascular: Normal heart size and pulmonary vascularity. Tortuous or ectatic aorta similar to prior exam. Lungs and pleural spaces: Linear atelectasis or scarring in the lung bases. No focal consolidation. No sign of pleural effusion. No pneumothorax identified. Bones and soft tissues: Small radiopaque density projected over the right upper quadrant. Mild thoracolumbar curve. No visible subcutaneous emphysema. IMPRESSION: 1. No acute cardiopulmonary findings. 2. No visible subcutaneous emphysema. Dictated by Esme Lees MD @ 07/04/2024 7:35:41 PM (Electronically Signed)
[2024-07-04 19:36] VITALS: BP 158/117; PULSE 92; RESP 18; O2SAT 98
[2024-07-04 19:55] LABS: Albumin* 3.9 g/dL (3.3-5.0); Chloride* 105 mmol/L (96-114); Potassium* 3.7 mmol/L (3.6-5.1); Sodium* 140 mmol/L (135-149)
[2024-07-04 19:57] LABS: Creatinine* 0.6 mg/dL (0.5-1.5); Est. Creatinine Clearance* 40.22; Estimated Glomerular Filt Rate 95 ml/min
[2024-07-04 19:58] LABS: Alanine Aminotransferase* 13 U/L (4-35); Alkaline Phosphatase* 104 U/L (40-150); Anion Gap 7 mEq/L (7-15); Aspartate Amino Transferase* 23 U/L (12-35); Bilirubin Direct* 0.3 mg/dL (0.0-0.5); Bilirubin Total* 0.7 mg/dL (0.1-1.5); Blood Urea Nitrogen* 15 mg/dL (7-30); Calcium* 9.5 mg/dL (8.4-10.6); Carbon Dioxide* 28 mmol/L (20-32); Glucose* 111 mg/dL (60-115); Total Protein* 7.8 g/dL (6.0-8.3)
[2024-07-04 20:00] LABS: Basophils Absolute Auto 0.02 K/uL (0.00-0.30); Basophils Percent Auto 0.4 % (0.0-3.0); Eosinophils Absolute Auto 0.12 K/uL (0.00-0.50); Eosinophils Percent Auto 2.4 % (0.0-7.0); Hematocrit 46.3 % (33.0-51.0); Hemoglobin* 15.1 gm/dL (12.0-16.0); Immature Granulocytes Abs Auto 0.01 K/uL (0.00-0.30); Immature Granulocytes Pct Auto 0.2 %; Lymphocytes Absolute Auto 1.01 K/uL (0.90-2.90); Lymphocytes Percent Auto 20.2 % (20-44); Mean Corpuscular HGB Conc 33 gm/dL (32-36); Mean Corpuscular Hemoglobin 29 pg (26-34); Mean Corpuscular Volume 90 fL (80-100); Monocytes Percent Auto 7.4 % (0.0-11.0); Neutrophils Absolute Auto 3.48 K/uL (1.7-7.0); Neutrophils Percent Auto 69.4 % (42.0-72.0); Platelet Count* 259 K/uL (140-440); RDW Coefficient of Variation % 13.4 % (11.5-15.5); Red Blood Count 5.13 m/uL (4.00-5.20); White Blood Count* 5.01 K/uL (4.50-11.00)
[2024-07-04 20:01] LABS: Slide Review Reflex No
[2024-07-04 20:32] VITALS: BP 179/110; PULSE 78; RESP 18; TEMP 36.8; O2SAT 99
[2024-07-04] MEDS: AMLODIPINE 10 MG TABLET PO (21:10)
[2024-07-04 21:35] LABS: PCR FLU A Negative PCR FLU A (Negative); PCR FLU B Negative PCR FLU B (Negative); SARS PCR* Negative SARS-CoV-2 (Negative)
[2024-07-04 21:48] VITALS: BP 140/96
[2024-07-04 22:31] VITALS: PULSE 94; RESP 18; TEMP 36.8; O2SAT 96
== END 2024-07-04 22:41 | disposition home or self-care (01) ==
PROVIDERS: Emergency Provider Family Medicine; PCP Family Medicine
DX: R53.81 Other malaise (principal); I10 Essential (primary) hypertension
CPT/HCPCS: 36415; 71045; 80048; 80076; 81001; 83735; 85025; 87086; 87186; 87631; 93005; 99284; 99285; A9270

== ENCOUNTER 2024-08-16 13:51 | Outpatient (CLI) | payer MEDICARE, MEDICAID, SELFPAY | END 2024-08-16 13:52 | disposition home or self-care (01) | PROVIDERS: PCP Family Medicine; Visit Provider Emergency Medicine | DX: R41.0 Disorientation, unspecified (principal); R11.2 Nausea with vomiting, unspecified | CPT/HCPCS: A0425; A0427 ==

== ENCOUNTER 2024-08-16 14:13 | Emergency (ER) | payer MEDICARE, SELFPAY ==
[2024-08-16] VITALS (9 sets, daily range): BP systolic 143–163; BP diastolic 83–121; PULSE 73–80; RESP 16–18; TEMP 36.7; O2SAT 93–96; BMI 19.5
--- OUTSIDE RECORDS SUMMARY | 2024-08-16 14:15 | XMS_ITS | Clinical Summary ---
Author Organization [employer] Address [address] [place] [address] Care Team Providers Care Real Time Trader Name Role Phone Enedina Powell PA-C Primary Care Provider Source Comments You are receiving this document as you are listed as the primary care provider,follow-up provider, or the patient has been referred to you for consultation.This is in compliance with the Medicare and[facility] Incentive [facility],which states Providers who transition their patient to another setting of careor provider of care or refers their patient to another provider of care shouldprovide summary care record for each transition of care or referral. [employer] Allergies Active Allergy Reactions Criticality Noted Date [...] Essential hypertension 04/15/2004 Overview (03/09/2017): LW Onset: [id number] ; Hypertension Hyperlipidemia 04/15/2004 Overview (02/19/2016): LW Onset: 72Gyf56 Allergic rhinitis 04/15/2004 Overview (03/09/2017): LW Onset: 80Owj76 ; Rhinitis Allergic NOS Resolved Problems Problem Noted Date Diagnosed Date Resolved Date Impaired fasting glucose 08/27/201911/2019 Cerebrovascular accident (CVA) 08/27/2019 04/21/2020 Positive FIT (fecal immunochemical test) 01/17/2018 04/21/2020 Endometriosis 04/15/2004 04/21/2020 Overview (03/09/2017): LW Onset: 29Sth72 ; Endometriosis NOS Immunizations Name Administration Dates Next Due Flu Vac Preserv Free (3+yrs) 05/05/2005 HepA-HepB ([place], 18+ yrs) 07/24/2013,01/13/20 13,12/12/2012 Influenza IIV3 (Trivalent) F dylan Highdose, 65+ Yrs (36274) 03/22/2018,06/16/2017 Influenza IIV4 (Quadrivalent) 0.5mL (95211) 03/18,04/27/2016,04/18/2015 Influenza IIV4 (Quadrivalent ) Fluad, 65+ [...] 82 02/04/2021 7:27 AM CDT Temperature 36.6 C (97.9 F) 12/14/2005 1:01 PM CDT ORAL C: 36.6 C Respiratory Rate - - Oxygen Saturation 94% 12/15/2004 9:4 0 AM CDT Inhaled Oxygen Concentration - - Weight 64.4 kg (142 lb) 02/04/2021 7:27 AM CDT Height 157.5 cm (5' 2) 04/21/2020 10:3 5 AM CDT Body Mass Index 25.97 04/21/2020 10:35 AM CDT Plan of Treatment Health Maintenance Due Date Last Done Comments Jamarcus 2016 Prediabetes: HGBA1C 04/21/2021 04/21/2020, 06/27/2019, 10/24/2006 DTaP/Tdap/Td (3 - Tdap) 06/03/2021 06/03/20 11, 11/15/2007, 01/29/1998 FIT Colon Cancer Screening 12/09/202112/09, 10/31/2019, 01/12/2018 Medicare Annual Wellness Visit 01/22/2022 01/22/2021, 06/12/2019 Mammogram 05/04/2022 05/04/2021, 06/17, 01/05/2018, Additional history exists COVID-19 Vaccine ( season) 2024 12/02/2020, 11/04/2020 Influenza (#1) 2024 04/21/2020, 03/18, 03/22/2018, Additional history exists Cholesterol 04/21/2025 04/21/2020, 06/17, 05/19/2017, Additional history exists RSV (1 - 1-dose 75+ series) 2026 HepA Aged Out 07/24/2013, 12/17, 12/12/2012 No [...] the patient. As a result of the Cures Act, all medical imaging exams are released immediately to [facility]. You may be viewing this report before our scheduling staff and your referring provider. We will attempt to contact you by phone within one business day of this report to schedule any recommended follow-up exams. If you have questions, please contact your health care provider. Narrative 05/04/2021 2:01 PM CDT MM MAMMOGRAM SCREENING BILAT W 3D MONIQUE W CAD performed on 05/04/21 Compared to: 06/27/2019 MM Mammogram Screening Bilat W 3D Monique W CAD, 01/05/2018 MM Mammogram Screening Bilat W CAD, and 11/15/2007 MM Mammogram Screening Bilat W CAD FINDINGS: Bilateral screening mammogram was performed with [...] 1 Negative Negative 12/10/2020 2:42 PM CDT [facility] Stool 12/09/2020 8:00 AM CDT 12/09/2020 2:45 PM CDT Enedina Powell PA-C LAB_1 [facility] [address] [address], [facility] [phone] * (ABNORMAL) Lipid Panel - LDLD If Trig High (04/21/2020 11:16 AM CDT) Cholesterol 179 0 - 199 mg/dL 04/21/2020 3:56 PM CDT [facility] Triglyceride 138 <=149 mg/dL 04/21/2020 3:56 PM T [facility] HDL Cholesterol 37(L) >=40 mg/dL 0 3:56 PM T [facility] LDL, Calculated 114 <130 mg/dL 0 3:56 PM T [facility] Non HDL Chol, Calculated 142 mg/dL 04/21/2020 3:56 PM T [facility] Cholesterol/HDL Ratio 4.8 04/21/2020 3:56 PM T [facility] Hours Fasting 12 04/21/2020 3:56 PM CDT [facility] Blood Venipuncture / Unknown 04/21/2020 11:16 AM CDT 04/21/2020 11:16 AM CDT Enedina Powell PA-C LAB_1 [facility] [address] [place] [address], [place] [phone] [facility] [address] [place] [address], [place] [phone] * Hepatitis C Antibody, with Reflex (04/21/2020 11:16 AM CDT) Hepatitis C Antibody Negative (Non Reactive) Negative (Non Reactive) 04/21/2020 3:54 PM CDT [facility] Comment:Antibodies to HCV no t detected. Does not exclude the possiblity of exposure to HCV. Blood Venipuncture / Unknown 04/21/2020 11:16 AM CDT 04/21/2020 11:16 AM CDT Enedina Powell PA-C LAB_1 [facility] [address] * Hemoglobin A1C Glycosylated (04/21/2020 11:15 AM CDT) Hemoglobin A1C 5.6 <=5.6 % 04/22/2020 9:21 AM CDT [facility] Blood Venipuncture / Unknown 04/21/2020 11:15 AM CDT 04/21/2020 11:16 AM CDT Enedina Powell PA-C LAB[facility]1 [facility] [address] [phone] from Last 3 Months or Most Recently Relevant to Health Maintenance Care Teams Real Time Trader Relationship Specialty Start Date End Date Enedina Powell, PAMalindaC [address] [place] [address] PCP - General Physician Gunner Mate 04/21/20
--- OUTSIDE RECORDS SUMMARY | 2024-08-16 14:15 | XMS_ITS | Clinical Summary ---
Author Organization [facility] Address [address] Care Team Providers Care Barrel Cleaner Name Role Phone Lottie Godinez DO Primary Care Provider Unav ailable Allergies Active Allergy Reactions Criticality Noted Date Comments Penicillins Rash,Nausea Only 04/30/2017 Medications POTASSIUM ORAL Take 1 tablet by mouth once daily. Active MAGNESIUM ORAL Take 1 tablet by mouth once daily. Active GARLIC ORAL Take 1 tablet by mouth once daily. Active WalkerIndications :Cerebrovascular accident (CVA), unspecified mechanism (HC) Walker with front wheels for home use. 1 Device 06/07/2019 Active aspirin chewable 81 mg chewable tabletIndications :Cerebrovascular accident (CVA), unspecified mechanism (HC) Take 1 tablet by mouth once daily with a meal. 10 tablet 06/10/2019 Active atorvastatin (LIPITOR) 20 mg tabletIndications :Cerebrovascular accident (CVA), unspecified mechanism (HC) Take 1 tablet by mouth at bedtime. 10 tablet 06/09/2019 Active chlorthalidone (HYGROTON) 25 mg tabletIndications :Essential hypertension Take 1 tablet by mouth every morning. 10 tablet 06/10/2019 Active isosorbide mononitrate (IMDUR) 30 mg extended release tablet 24 HourIndications:E ssential hypertension Take 1 tablet by mouth once daily. 10 tablet 06/10/2019 Active losartan (COZAAR) 100 mg tabletIndications :Essential hypertension Take 1 tablet by mouth once daily. 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 08/18/1958 Family History Medical History Relation Name Comments [...] Friends and Fami ly Not on file 11/13/2021 Comments No Sex and Gender Information Value Date Recorded Sex Assigned at Not on file Legal Sex Female 5:24 AM MOVEMENT THERAPIST Gender Identity Not on file Sexual Orientation Not on file Obstetrics History Last Filed Vital Signs Vital Sign Reading Time Taken Comments Blood Pressure 136/91 06/09/2019 10:00 AM MOVEMENT THERAPIST Pulse 89 06/09/2019 10:00 AM MOVEMENT THERAPIST Temperature 36.3 C (97.4 F) 06/09/2019 8:03 AM MOVEMENT THERAPIST Respiratory Rate 18 06/09/2019 8:03 AM MOVEMENT THERAPIST Oxygen Saturation 95% 06/09/2019 8:03 AM MOVEMENT THERAPIST Inhaled Oxygen Concentration - - Weight 78 kg (171 lb 15.3 oz) 06/07/2019 4:20 AM MOVEMENT THERAPIST Height 157.5 cm (5' 2) 04/30/2017 10:25 AM CDT Body Mass Index 31.45 04/30/2017 10:25 AM CDT Plan of Treatment Health Maintenance Due Date Last Done Comments Tdap 1962 Depression screening for age 12+ 1963 Hepatitis C screening for age 18-79 1969 Tetanus booster 1971 Colonoscopy through age 75 1996 Pneumococcal series for age 50+ (1 of 1 - PCV) 2001 Zoster (shingles) series for age 50+ (1 of 2) 2001 Mammogram for age 45-75 11/16/2001 11/16/2000 RSV vaccine for adults or pr egnancy (1 - Risk 60-74 years 1-dose series) 2011 DEXA/DXA scan for age 65+ 2016 Medicare Wellness for age 65+ 2016 BMI (ht and wt on same day) for age 18+ 04/30/2018 1 COVID-19 vaccine series ( season) 2024 12/02/2020, 11/04/2020 Influenza for age 65+ 03/18/2024 Lipids for age 45-75 06/06/2024 06/06/2019 Procedures Procedure Name Priority Date/Time Associated Diagnosis Comments LIPID PANEL Early AM 06/06/2019 5:19 AM MOVEMENT THERAPIST XR MAMMO SCREENING BILATERAL (IA) Routine 11/16/2000 1:37 PM CDT from Last 3 Months or Most Recently Relevant to Health Maintenance Results * (ABNORMAL) Lipid Panel - Fasting (06/06/2019 5:19 AM MOVEMENT THERAPIST) CHOLESTEROL,TOTAL 242(H) 100 - 199 mg/dL 06/06/2019 5:51 AM MOVEMENT THERAPIST [facility] TRIGLYCERIDES 87 <150 mg/dL 06/06/2019 5:51 AM MOVEMENT THERAPIST [facility] HDL CHOLESTEROL 45 >40 mg/dL 9 5:51 AM MOVEMENT THERAPIST [facility] NON-HDL CHOLESTEROL 197(H) <145 mg/dl 06/06/2019 5:51 AM MOVEMENT THERAPIST [facility] CHOL/HDL RATIO 5.38(H) <4.50 06/06/2019 5:51 AM MOVEMENT THERAPIST [facility] LDL CHOLESTEROL 180(H) <=130 mg/dL 06/06/2019 5:51 AM MOVEMENT THERAPIST [facility] PROVIDER ORDERED STATUS RANDOM 06/06/2019 5:51 AM MOVEMENT THERAPIST [facility] Blood BLOOD SPECIMEN / Unknown Butterfly / Unknown 06/06/2019 5:19 AM MOVEMENT THERAPIST 06/06/2019 5:31 AM MOVEMENT THERAPIST Cheryl SNIDER CHEMISTRY Final Res ult [facility] [address] [place] [id number] * XR MAMMO SCREENING BILATERAL (11/16/2000 1:37 PM CDT) MAMMOGRAM done at [facility] Anatomical Region Laterality Modality BREASTS, Breast Left, Breast Right Bilateral Mammography 11/16/2000 1:37 PM CDT Narrative 12/29/2003 7:34 PM CDT Ordered by an unspecified provider. Other Clinical Staff MAMMO Final Resul t from Last 3 Months or Most Recently Relevant to Health Maintenance Insurance [employer]ICARE ADVANTAGE MR Advance Directives * Full Code (Latest Code Status on File) Date Activated Date Inactivated Comments 06/06/2019 1:50 AM 06/09/2019 2:17 PM Care Teams Barrel Cleaner Relationship Specialty Start Date End Date Lottie Godinez DO PCP - General Family Practice 06/05/19
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
[2024-08-16] MEDS: 0.9 % SODIUM CHLORIDE 1000 ml 1,000 ML IV (15:40)
[2024-08-16 15:44] LABS: Basophils Absolute Auto 0.02 K/uL (0.00-0.30); Basophils Percent Auto 0.4 % (0.0-3.0); Eosinophils Absolute Auto 0.01 K/uL (0.00-0.50); Eosinophils Percent Auto 0.2 % (0.0-7.0); Hematocrit 39.3 % (33.0-51.0); Hemoglobin* 13.1 gm/dL (12.0-16.0); Immature Granulocytes Abs Auto 0.02 K/uL (0.00-0.30); Immature Granulocytes Pct Auto 0.4 %; Lymphocytes Percent Auto 9.3 % (20-44); Mean Corpuscular HGB Conc 33 gm/dL (32-36); Mean Corpuscular Hemoglobin 29 pg (26-34); Mean Corpuscular Volume 88 fL (80-100); Monocytes Percent Auto 3.3 % (0.0-11.0); Neutrophils Percent Auto 86.4 % (42.0-72.0); Platelet Count* 314 K/uL (140-440); RDW Coefficient of Variation % 13.5 % (11.5-15.5); Red Blood Count 4.45 m/uL (4.00-5.20); White Blood Count* 4.52 K/uL (4.50-11.00)
[2024-08-16 15:52] LABS: Chloride* 103 mmol/L (96-114); Sodium* 137 mmol/L (135-149)
[2024-08-16 15:55] LABS: Anion Gap 7 mEq/L (7-15); Blood Urea Nitrogen* 17 mg/dL (7-30); Carbon Dioxide* 27 mmol/L (20-32); Creatinine* 0.6 mg/dL (0.5-1.5); Est. Creatinine Clearance* 35.88; Estimated Glomerular Filt Rate 95 ml/min
[2024-08-16 15:56] LABS: Calcium* 8.7 mg/dL (8.4-10.6); Glucose* 123 mg/dL (60-115)
[2024-08-16 15:58] LABS: Potassium* 7.2 mmol/L (3.6-5.1)
[2024-08-16 16:07] LABS: Slide Review Reflex No
[2024-08-16 16:07] LABS: Appearance Urine Clear (Clear); Bilirubin Urine Negative (Negative); Blood Urine Trace-intact (Negative); Color Urine Yellow (Yellow); Glucose Urine Negative (Negative); Ketones Urine 1+ (Negative); Leukocyte Esterase Urine 1+ (Negative); Nitrite Urine Negative (Negative); Protein Urine Negative (Negative)
--- OUTSIDE RECORDS SUMMARY | 2024-08-16 16:09 | XMS_ITS | Clinical Summary ---
Author Organization [facility] Address [address] [place] [address] Care Team Providers Care Finish Production Manager Name Role Phone Enedina Powell PA-C Primary Care Provider Source Comments You are receiving this document as you are listed as the primary care provider,follow-up provider, or the patient has been referred to you for consultation.This is in compliance with the Medicare and[place] Healthcaid EHR Incentive Program,which states Providers who transition their patient to another setting of careor provider of care or refers their patient to another provider of care shouldprovide summary care record for each transition of care or referral. [facility] Allergies Active Allergy Reactions Criticality Noted Date [...] Essential hypertension 04/15/2004 Overview (03/09/2017): LW Onset: 39Vru32 ; Hypertension Hyperlipidemia 04/15/2004 Overview (02/19/2016): LW Onset: 72Ngs37 Allergic rhinitis 04/15/2004 Overview (03/09/2017): LW Onset: 19Ijm44 ; Rhinitis Allergic NOS Resolved Problems Problem Noted Date Diagnosed Date Resolved Date Impaired fasting glucose 08/27/201911/2019 Cerebrovascular accident (CVA) 08/27/2019 04/21/2020 Positive FIT (fecal immunochemical test) 01/17/2018 04/21/2020 Endometriosis 04/15/2004 04/21/2020 Overview (03/09/2017): LW Onset: 98Zgn27 ; Endometriosis NOS Immunizations Name Administration Dates Next Due Flu Vac Preserv Free (3+yrs) 05/05/2005 HepA-HepB ([place], 18+ yrs) 07/24/2013,01/13/20 13,12/12/2012 Influenza IIV3 (Trivalent) F dylan Highdose, 65+ Yrs (49427) 03/22/2018,06/16/2017 Influenza IIV4 (Quadrivalent) 0.5mL (42185) 03/18,04/27/2016,04/18/2015 Influenza IIV4 (Quadrivalent ) Fluad, 65+ [...] medical imaging exams are released immediately to [facility]. You may be viewing this report [...] 1 Negative Negative 12/10/2020 2:42 PM CDT [facility] Stool 12/09/2020 8:00 AM CDT 12/09/2020 2:45 PM CDT Enedina Powell PA-C LAB_1 [facility] [address] [address], [facility] [phone] * (ABNORMAL) Lipid Panel - LDLD If Trig High (04/21/2020 11:16 AM CDT) Cholesterol 179 0 - 199 mg/dL 04/21/2020 3:56 PM CDT [facility] Triglyceride 138 <=149 mg/dL 04/21/2020 3:56 PM T [facility] HDL Cholesterol 37(L) >=40 mg/dL 0 3:56 PM T [facility] LDL, Calculated 114 <130 mg/dL 0 3:56 PM T [facility] Non HDL Chol, Calculated 142 mg/dL 04/21/2020 3:56 PM T [facility] Cholesterol/HDL Ratio 4.8 04/21/2020 3:56 PM T [facility] Hours Fasting 12 04/21/2020 3:56 PM CDT [facility] Blood Venipuncture / Unknown 04/21/2020 11:16 AM CDT 04/21/2020 11:16 AM CDT Enedina Powell PA-C LAB_1 [facility] [address] [place] [address], [place] [phone] [facility] [address] [place] [address], [place] [phone] * Hepatitis C Antibody, with Reflex (04/21/2020 11:16 AM CDT) Hepatitis C Antibody Negative (Non Reactive) Negative (Non Reactive) 04/21/2020 3:54 PM CDT [facility] Comment:Antibodies to HCV no t detected. Does not exclude the possiblity of exposure to HCV. Blood Venipuncture / Unknown 04/21/2020 11:16 AM CDT 04/21/2020 11:16 AM CDT Enedina Powell PA-C LAB_1 [facility] [address] * Hemoglobin A1C Glycosylated (04/21/2020 11:15 AM CDT) Hemoglobin A1C 5.6 <=5.6 % 04/22/2020 9:21 AM [facility]T [facility] Blood Venipuncture / Unknown 04/21/2020 11:15 AM CDT 04/21/2020 11:16 AM CDT Enedina Powell PA-C [facility] [address] [phone] from Last 3 Months or Most Recently Relevant to Health Maintenance Care Teams Finish Production Manager Relationship Specialty Start Date End Date Enedina Powell, PAMalindaC [address] [place] [address] PCP - General Physician Vice President Investor Relations 04/21/20
[2024-08-16 16:35] LABS: Chloride* 106 mmol/L (96-114)
[2024-08-16 16:36] LABS: Potassium* 3.4 mmol/L (3.6-5.1); Sodium* 140 mmol/L (135-149)
[2024-08-16 16:38] LABS: Creatinine* 0.6 mg/dL (0.5-1.5); Est. Creatinine Clearance* 35.88; Estimated Glomerular Filt Rate 95 ml/min
[2024-08-16 16:39] LABS: Anion Gap 6 mEq/L (7-15); Blood Urea Nitrogen* 15 mg/dL (7-30); Calcium* 8.6 mg/dL (8.4-10.6); Carbon Dioxide* 28 mmol/L (20-32); Glucose* 114 mg/dL (60-115)
[2024-08-16 17:04] LABS: Bacteria Urine Many; Squamous Epithelial Cell Urine Few (None-Few)
--- NOTE | 2024-08-16 17:36 | ED.NURSE ---
Patient provided with meal in her room.
[2024-08-16 19:06] LABS: PCR FLU A Negative PCR FLU A (Negative); PCR FLU B Negative PCR FLU B (Negative); PCR RSV Negative PCR RSV (Negative); SARS PCR* Negative SARS-CoV-2 (Negative)
[2024-08-16] MEDS: cefTRIAXone 1 GM VIAL IM (19:26)
[2024-08-16] MEDS: LIDOCAINE 1% 5 ml (pf) 5 ML VIAL 2.1 ML IM (19:27)
== END 2024-08-16 19:28 | disposition home or self-care (01) ==
PROVIDERS: Emergency Provider Emergency Medicine Emergency Medical Services; PCP Family Medicine
DX: N39.0 Urinary tract infection, site not specified (principal)
CPT/HCPCS: 36415; 80048; 81001; 85025; 87086; 87631; 96372; 99284; J0696; J7030

== ENCOUNTER 2024-08-18 15:05 | Outpatient (CLI) | payer MEDICARE, MEDICAID, SELFPAY | END 2024-08-18 15:06 | disposition home or self-care (01) | LOC: AMB 08-28 05:44 | PROVIDERS: PCP Family Medicine; Visit Provider Family Medicine | DX: R41.0 Disorientation, unspecified (principal); M25.511 Pain in right shoulder | CPT/HCPCS: A0425; A0429 ==

== ENCOUNTER 2024-08-18 15:37 | Observation (INO) | payer MEDICARE, MEDICAID, SELFPAY ==
--- OUTSIDE RECORDS SUMMARY | 2024-08-18 15:39 | XMS_ITS | Clinical Summary ---
Author Organization [email or web address] Address [address] [place] [address] Care Team Providers Care Casino Floor Runner Name Role Phone Enedina Powell PA-C Primary Care Provider Source Comments You are receiving this document as you are listed as the primary care provider,follow-up provider, or the patient has been referred to you for consultation.This is in compliance with the Medicare and[facility] Health Systemcaid EHR Incentive Program,which states Providers who transition their patient to another setting of careor provider of care or refers their patient to another provider of care shouldprovide summary care record for each transition of care or referral. [email or web address] Allergies Active Allergy Reactions Criticality Noted Date [...] Essential hypertension 04/15/2004 Overview (03/09/2017): LW Onset: 59Vff96 ; Hypertension Hyperlipidemia 04/15/2004 Overview (02/19/2016): LW Onset: 01Jft54 Allergic rhinitis 04/15/2004 Overview (03/09/2017): LW Onset: 97Nho02 ; Rhinitis Allergic NOS Resolved Problems Problem Noted Date Diagnosed Date Resolved Date Impaired fasting glucose 08/27/201911/2019 Cerebrovascular accident (CVA) 08/27/2019 04/21/2020 Positive FIT (fecal immunochemical test) 01/17/2018 04/21/2020 Endometriosis 04/15/2004 04/21/2020 Overview (03/09/2017): LW Onset: 36Nxa96 ; Endometriosis NOS Immunizations Name Administration Dates Next Due Flu Vac Preserv Free (3+yrs) 05/05/2005 HepA-HepB ([place], 18+ yrs) 07/24/2013,01/13/20 13,12/12/2012 Influenza IIV3 (Trivalent) F dylan Highdose, 65+ Yrs (64424) 03/22/2018,06/16/2017 Influenza IIV4 (Quadrivalent) 0.5mL (26021) 03/18,04/27/2016,04/18/2015 Influenza IIV4 (Quadrivalent ) Fluad, 65+ [...] medical imaging exams are released immediately to [facility]. You may be viewing this report before [...] 1 Negative Negative 12/10/2020 2:42 PM CDT [facility] Stool 12/09/2020 8:00 AM CDT 12/09/2020 2:45 PM CDT Enedina Powell PA-C LAB_1 [facility] [address] [address], [facility] [phone] * (ABNORMAL) Lipid Panel - LDLD If Trig High (04/21/2020 11:16 AM CDT) Cholesterol 179 0 - 199 mg/dL 04/21/2020 3:56 PM CDT [facility] Triglyceride 138 <=149 mg/dL 04/21/2020 3:56 PM T [facility] HDL Cholesterol 37(L) >=40 mg/dL 0 3:56 PM T [facility] LDL, Calculated 114 <130 mg/dL 0 3:56 PM T [facility] Non HDL Chol, Calculated 142 mg/dL 04/21/2020 3:56 PM T [facility] Cholesterol/HDL Ratio 4.8 04/21/2020 3:56 PM T [facility] Hours Fasting 12 04/21/2020 3:56 PM CDT [facility] Blood Venipuncture / Unknown 04/21/2020 11:16 AM CDT 04/21/2020 11:16 AM CDT Enedina Powell PA-C LAB_1 [facility] [address] [place] [address], [place] [phone] [facility] [address] [place] [address], [place] [phone] * Hepatitis C Antibody, with Reflex (04/21/2020 11:16 AM CDT) Hepatitis C Antibody Negative (Non Reactive) Negative (Non Reactive) 04/21/2020 3:54 PM CDT [facility] Comment:Antibodies to HCV no t detected. Does not exclude the possiblity of exposure to HCV. Blood Venipuncture / Unknown 04/21/2020 11:16 AM CDT 04/21/2020 11:16 AM CDT Enedina Powell PA-C LAB_1 [facility] [address] * Hemoglobin A1C Glycosylated (04/21/2020 11:15 AM CDT) Hemoglobin A1C 5.6 <=5.6 % 04/22/2020 9:21 AM CDT [facility] Blood Venipuncture / Unknown 04/21/2020 11:15 AM CDT 04/21/2020 11:16 AM CDT Enedina Powell PA-C LAB_1 [facility] [address] [phone] from Last 3 Months or Most Recently Relevant to Health Maintenance Care Teams Casino Floor Runner Relationship Specialty Start Date End Date Enedina Powell, PAMalindaC [address] [place] [address] PCP - General Physician Community Outreach Worker 04/21/20
--- OUTSIDE RECORDS SUMMARY | 2024-08-18 15:39 | XMS_ITS | Clinical Summary ---
Author Organization [facility] [facility] Address [place], [place] [address] Care Team Providers Care Mlt Name Role Phone Lottie Godinez DO Primary [...] 05/19/2017 Hyperlipidemia 04/15/2004 Overview (06/09/2019): LW Onset: 08Hgv67 HYPERTENSION 08/27/1999 Overview (06/09/2019): LW Onset: 30Vdb37 ; Hypertension ENDOMETRIOSIS, UTERUS 08/27/1999 RHINITIS, ALLERGIC NOS 08/27/1999 Overview (06/09/2019): LW Onset: 85Icr72 ; Rhinitis Allergic NOS LUMBAGO 08/27/1999 RHEUMATIC [...] on file Legal Sex Female 5:24 AM MANAGER OF SUPPLY CHAIN Gender Identity Not on file Sexual Orientation Not on file Obstetrics History Last Filed Vital Signs Vital Sign Reading Time Taken Comments Blood Pressure 136/91 06/09/2019 10:00 AM MANAGER OF SUPPLY CHAIN Pulse 89 06/09/2019 10:00 AM MANAGER OF SUPPLY CHAIN Temperature 36.3 C (97.4 F) 06/09/2019 8:03 AM MANAGER OF SUPPLY CHAIN Respiratory Rate 18 06/09/2019 8:03 AM MANAGER OF SUPPLY CHAIN Oxygen Saturation 95% 06/09/2019 8:03 AM MANAGER OF SUPPLY CHAIN Inhaled Oxygen Concentration - - Weight 78 kg (171 lb 15.3 oz) 06/07/2019 4:20 AM MANAGER OF SUPPLY CHAIN Height 157.5 cm (5' 2) 04/30/2017 10:25 [...] LIPID PANEL Early AM 06/06/2019 5:19 AM MANAGER OF SUPPLY CHAIN XR MAMMO SCREENING BILATERAL (IA) Routine 11/16/2000 1:37 PM CDT from Last 3 Months or Most Recently Relevant to Health Maintenance Results * (ABNORMAL) Lipid Panel - Fasting (06/06/2019 5:19 AM MANAGER OF SUPPLY CHAIN) CHOLESTEROL,TOTAL 242(H) 100 - 199 mg/dL 06/06/2019 5:51 AM MANAGER OF SUPPLY CHAIN [facility] TRIGLYCERIDES 87 <150 mg/dL 06/06/2019 5:51 AM MANAGER OF SUPPLY CHAIN [facility] HDL CHOLESTEROL 45 >40 mg/dL 9 5:51 AM MANAGER OF SUPPLY CHAIN [facility] NON-HDL CHOLESTEROL 197(H) <145 mg/dl 06/06/2019 5:51 AM MANAGER OF SUPPLY CHAIN [facility] CHOL/HDL RATIO 5.38(H) <4.50 06/06/2019 5:51 AM MANAGER OF SUPPLY CHAIN [facility] LDL CHOLESTEROL 180(H) <=130 mg/dL 06/06/2019 5:51 AM MANAGER OF SUPPLY CHAIN [facility] PROVIDER ORDERED STATUS RANDOM 06/06/2019 5:51 AM MANAGER OF SUPPLY CHAIN [facility] Blood BLOOD SPECIMEN / Unknown Butterfly / Unknown 06/06/2019 5:19 AM MANAGER OF SUPPLY CHAIN 06/06/2019 5:31 AM MANAGER OF SUPPLY CHAIN Cheryl SNIDER CHEMISTRY Final Res ult [facility] [address] [place] [address] * XR MAMMO SCREENING BILATERAL (11/16/2000 1:37 PM CDT) MAMMOGRAM done at [facility] Anatomical Region Laterality Modality BREASTS, Breast Left, [...] 1:50 AM 06/09/2019 2:17 PM Care Teams Mlt Relationship Specialty Start Date End Date Lottie Godinez DO PCP - General Family Practice 06/05/19
[2024-08-18 15:47] VITALS: BP 142/102; PULSE 92; TEMP 36.4; O2SAT 96; BMI 17.9
--- NOTE | 2024-08-18 16:02 | CRLHL7_ITS ---
For Patients: As a result of the Cures Act, medical imaging exams and procedure reports are released immediately into your electronic medical record. You may view this report before your referring provider. If you have questions, please contact your health care provider. INDICATION: Weakness TECHNIQUE: Chest 2 views. COMPARISON: Chest x-ray 04/18/2023 FINDINGS: The heart is normal in size. The pulmonary vasculature is within normal limits. The lungs are clear without focal consolidation, pleural effusion or pneumothorax. There are moderate degenerative changes of the thoracic spine. IMPRESSION: No acute process. Dictated by Ruth Machado MD @ 08/18/2024 4:58:19 PM Dictated by: Ruth Machado MD @ 08/18/2024 16:58:38 (Electronically Signed)
--- NOTE | 2024-08-18 16:02 | CRLHL7_ITS ---
For Patients: As a result of the Century Cures Act, medical imaging exams and procedure reports are released immediately into your electronic medical record. You may view this report before your referring provider. If you have questions, please contact your health care provider. INDICATION: Confusion, weakness TECHNIQUE: Noncontrast axial CT of the head. Coronal and sagittal reformats. Bone and soft tissue algorithms. COMPARISON: CT head 11/21/2022 FINDINGS: Stable bifrontal encephalomalacia and gliosis. Stable chronic lacunar infarcts at the basal ganglia regions. Similar generalized cerebral and cerebellar volume loss and moderate chronic microangiopathy changes. No acute intracranial hemorrhage or abnormal extra-axial fluid collection. Carpio-white matter differentiation is grossly preserved. Calcific intracranial atherosclerotic plaquing. Intact calvarium. Mucosal thickening at the inferior maxillary sinuses. Small right, trace left mastoid effusions. Bilateral cerumen. Unremarkable orbits. IMPRESSION: 1. No CT evidence of acute intracranial abnormality or significant interval change relative to 11/21/2022. 2. Similar generalized cerebral/cerebellar volume loss, chronic microangiopathy changes, bifrontal encephalomalacia and chronic lacunar infarcts. Please note that all CT scans at this facility use dose modulation, iterative reconstruction, and/or weight-based dosing when appropriate to reduce radiation dose to as low as reasonably achievable. Dictated by Rosalind Saucedo MD @ 08/18/2024 4:45:40 PM (Electronically Signed)
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
--- NOTE | 2024-08-18 16:20 | CRLHL7_ITS ---
For Patients: As a result of the Century Cures Act, medical imaging exams and procedure reports are released immediately into your electronic medical record. You may view this report before your referring provider. If you have questions, please contact your health care provider. INDICATION: Acute stroke. TECHNIQUE: CTA neck with contrast bolus tracking, 3D angiographic rendering using maximum intensity projection (MIP) and images permanently archived. FINDINGS: There is carotid atherosclerosis. There is no significant carotid artery stenosis or dissection. There is no significant vertebral artery stenosis or dissection. The soft tissues of the neck are within normal limits. The cervical spine is in normal alignment. Degenerative changes are noted in the cervical spine. Pneumomediastinum is present. IMPRESSION: 1. No significant carotid or vertebral artery stenosis or dissection. 2. Pneumomediastinum of uncertain etiology. Clinical correlation required. Please note that all CT scans at this facility use dose modulation, iterative reconstruction, and/or weight-based dosing when appropriate to reduce radiation dose to as low as reasonably achievable. Dictated by Segundo Jauregui MD @ 08/18/2024 7:13:09 PM (Electronically Signed)
--- NOTE | 2024-08-18 16:20 | CRLHL7_ITS ---
For Patients: As a result of the Century Cures Act, medical imaging exams and procedure reports are released immediately into your electronic medical record. You may view this report before your referring provider. If you have questions, please contact your health care provider. INDICATION: Acute stroke. TECHNIQUE: CTA head with contrast bolus tracking, 3D angiographic rendering using maximum intensity projection (MIP) and images permanently archived. FINDINGS: There is scattered intracranial atherosclerotic disease. There is otherwise normal opacification of the intracranial vasculature. There is no large vessel occlusion. 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 IMPRESSION: No acute intracranial abnormality at CTA. Incidental cavernous left ICA aneurysm. We would be happy to manage this of the [facility] neurointerventional clinic if desired. This can be arranged by calling our coordinator at [phone]. Segundo Jauregui MD Neurointerventional Radiology [facility]: [phone] Please note that all CT scans at this facility use dose modulation, iterative reconstruction, and/or weight-based dosing when appropriate to reduce radiation dose to as low as reasonably achievable. Dictated by Segundo Jauregui MD @ 08/18/2024 7:16:48 PM (Electronically Signed)
--- OUTSIDE RECORDS SUMMARY | 2024-08-18 16:31 | XMS_ITS | Clinical Summary ---
Author Organization [facility] Address [place], [place] [address] Care Team Providers Care Vice President Of Software Development Name Role Phone Lottie Godinez DO Primary [...] 05/19/2017 Hyperlipidemia 04/15/2004 Overview (06/09/2019): LW Onset: [id number] HYPERTENSION 08/27/1999 Overview (06/09/2019): LW Onset: 60Ely75 ; Hypertension ENDOMETRIOSIS, UTERUS 08/27/1999 RHINITIS, ALLERGIC NOS 08/27/1999 Overview (06/09/2019): LW Onset: 28Mjf67 ; Rhinitis Allergic NOS LUMBAGO 08/27/1999 RHEUMATIC [...] on file Legal Sex Female 5:24 AM FOUR SLIDE OPERATOR Gender Identity Not on file Sexual Orientation Not on file Obstetrics History Last Filed Vital Signs Vital Sign Reading Time Taken Comments Blood Pressure 136/91 06/09/2019 10:00 AM FOUR SLIDE OPERATOR Pulse 89 06/09/2019 10:00 AM FOUR SLIDE OPERATOR Temperature 36.3 C (97.4 F) 06/09/2019 8:03 AM FOUR SLIDE OPERATOR Respiratory Rate 18 06/09/2019 8:03 AM FOUR SLIDE OPERATOR Oxygen Saturation 95% 06/09/2019 8:03 AM FOUR SLIDE OPERATOR Inhaled Oxygen Concentration - - Weight 78 kg (171 lb 15.3 oz) 06/07/2019 4:20 AM FOUR SLIDE OPERATOR Height 157.5 cm (5' 2) 04/30/2017 10:25 [...] LIPID PANEL Early AM 06/06/2019 5:19 AM FOUR SLIDE OPERATOR XR MAMMO SCREENING BILATERAL (IA) Routine 11/16/2000 1:37 PM CDT from Last 3 Months or Most Recently Relevant to Health Maintenance Results * (ABNORMAL) Lipid Panel - Fasting (06/06/2019 5:19 AM FOUR SLIDE OPERATOR) CHOLESTEROL,TOTAL 242(H) 100 - 199 mg/dL 06/06/2019 5:51 AM FOUR SLIDE OPERATOR [facility] TRIGLYCERIDES 87 <150 mg/dL 06/06/2019 5:51 AM FOUR SLIDE OPERATOR [facility] HDL CHOLESTEROL 45 >40 mg/dL 9 5:51 AM FOUR SLIDE OPERATOR [facility] NON-HDL CHOLESTEROL 197(H) <145 mg/dl 06/06/2019 5:51 AM FOUR SLIDE OPERATOR [facility] CHOL/HDL RATIO 5.38(H) <4.50 06/06/2019 5:51 AM FOUR SLIDE OPERATOR [facility] LDL CHOLESTEROL 180(H) <=130 mg/dL 06/06/2019 5:51 AM FOUR SLIDE OPERATOR [facility] PROVIDER ORDERED STATUS RANDOM 06/06/2019 5:51 AM FOUR SLIDE OPERATOR [facility] Blood BLOOD SPECIMEN / Unknown Butterfly / Unknown 06/06/2019 5:19 AM FOUR SLIDE OPERATOR 06/06/2019 5:31 AM FOUR SLIDE OPERATOR Cheryl SNIDER CHEMISTRY Final Res ult [facility] [address] [place] [id number] * XR MAMMO SCREENING BILATERAL (11/16/2000 1:37 PM CDT) MAMMOGRAM done at [facility] Anatomical Region Laterality Modality BREASTS, Breast Left, [...] 1:50 AM 06/09/2019 2:17 PM Care Teams Vice President Of Software Development Relationship Specialty Start Date End Date Lottie Godinez DO PCP - General Family Practice 06/05/19
--- OUTSIDE RECORDS SUMMARY | 2024-08-18 16:31 | XMS_ITS | Clinical Summary ---
Author Organization [facility] Address [address] [place] [address] Care Team Providers Care Chocolate Refining Roller Name Role Phone Enedina Powell PA-C Primary Care Provider Source Comments You are receiving this document as you are listed as the primary care provider,follow-up provider, or the patient has been referred to you for consultation.This is in compliance with the Medicare and[facility] EHR Incentive Program,which states Providers who transition their patient to another setting of careor provider of care or refers their patient to another provider of care shouldprovide summary care record for each transition of care or referral. [facility] Allergies Active Allergy Reactions Criticality Noted Date [...] Essential hypertension 04/15/2004 Overview (03/09/2017): LW Onset: [id number] ; Hypertension Hyperlipidemia 04/15/2004 Overview (02/19/2016): LW Onset: [id number] Allergic rhinitis 04/15/2004 Overview (03/09/2017): LW Onset: 00Vps92 ; Rhinitis Allergic NOS Resolved Problems Problem Noted Date Diagnosed Date Resolved Date Impaired fasting glucose 08/27/201911/2019 Cerebrovascular accident (CVA) 08/27/2019 04/21/2020 Positive FIT (fecal immunochemical test) 01/17/2018 04/21/2020 Endometriosis 04/15/2004 04/21/2020 Overview (03/09/2017): LW Onset: [id number] ; Endometriosis NOS Immunizations Name Administration Dates Next Due Flu Vac Preserv Free (3+yrs) 05/05/2005 HepA-HepB ([place], 18+ yrs) 07/24/2013,01/13/20 13,12/12/2012 Influenza IIV3 (Trivalent) F dylan Highdose, 65+ Yrs (95470) 03/22/2018,06/16/2017 Influenza IIV4 (Quadrivalent) 0.5mL (85903) 03/18,04/27/2016,04/18/2015 Influenza IIV4 (Quadrivalent ) Fluad, 65+ [...] medical imaging exams are released immediately to [facility]. You may be viewing this report [...] 1 Negative Negative 12/10/2020 2:42 PM CDT [facility] Stool 12/09/2020 8:00 AM CDT 12/09/2020 2:45 PM CDT Enedina Powell PA-C LAB_1 [facility] [address] [address], [facility] [phone] * (ABNORMAL) Lipid Panel - LDLD If Trig High (04/21/2020 11:16 AM CDT) Cholesterol 179 0 - 199 mg/dL 04/21/2020 3:56 PM CDT [facility] Triglyceride 138 <=149 mg/dL 04/21/2020 3:56 PM T [facility] HDL Cholesterol 37(L) >=40 mg/dL 0 3:56 PM T [facility] LDL, Calculated 114 <130 mg/dL 0 3:56 PM T [facility] Non HDL Chol, Calculated 142 mg/dL 04/21/2020 3:56 PM T [facility] Cholesterol/HDL Ratio 4.8 04/21/2020 3:56 PM T [facility] Hours Fasting 12 04/21/2020 3:56 PM CDT [facility] Blood Venipuncture / Unknown 04/21/2020 11:16 AM CDT 04/21/2020 11:16 AM CDT Enedina Powell PA-C LAB_1 [facility] [address] [place] [address], [place] [phone] [facility] [address] [place] [address], [place] [phone] * Hepatitis C Antibody, with Reflex (04/21/2020 11:16 AM CDT) Hepatitis C Antibody Negative (Non Reactive) Negative (Non Reactive) 04/21/2020 3:54 PM CDT [facility] Comment:Antibodies to HCV no t detected. Does not exclude the possiblity of exposure to HCV. Blood Venipuncture / Unknown 04/21/2020 11:16 AM CDT 04/21/2020 11:16 AM CDT Enedina Powell PA-C LAB_1 [facility] [address] * Hemoglobin A1C Glycosylated (04/21/2020 11:15 AM CDT) Hemoglobin A1C 5.6 <=5.6 % 04/22/2020 9:21 AM [facility] Blood Venipuncture / Unknown 04/21/2020 11:15 AM CDT 04/21/2020 11:16 AM CDT Enedina Powell PA-C [facility] [address] [phone] from Last 3 Months or Most Recently Relevant to Health Maintenance Care Teams Chocolate Refining Roller Relationship Specialty Start Date End Date Enedina Powell, PAMalindaC [address] [place] [address] PCP - General Physician Dental Instrument Maker 04/21/20
[2024-08-18 16:32] LABS: Appearance Urine Slightly Cloudy (Clear); Bilirubin Urine Negative (Negative); Blood Urine Negative (Negative); Color Urine Yellow (Yellow); Glucose Urine Negative (Negative); Ketones Urine Negative (Negative); Leukocyte Esterase Urine Negative (Negative); Nitrite Urine Negative (Negative); Protein Urine 1+ (Negative)
[2024-08-18 16:41] LABS: Amphetamine Screen Urine Negative (Negative); Barbiturate Screen Urine Negative (Negative); Benzodiazepines Screen Urine Negative (Negative); Cannabinoid Screen Urine Negative (Negative); Cocaine Screen Urine Negative (Negative); Methadone Screen Urine Negative (Negative); Methamphetamines Screen Urine Negative (Negative); Opiate Screen Urine Negative (Negative); Oxycodone Screen Urine Negative (Negative); Phencyclidine Screen Urine Negative (Negative); Tricyclic Antidepressant Urine Negative (Negative)
[2024-08-18 16:50] LABS: Bacteria Urine Moderate; RBC Urine 0-2 (0-2); Squamous Epithelial Cell Urine Many (None-Few)
[2024-08-18 16:51] LABS: Hyaline Casts Urine Many (None-Few); Other Sediment Urine Many
[2024-08-18 16:55] LABS: Lactate* 2.1 mmol/L (0.5-1.9)
[2024-08-18 16:56] LABS: Basophils Absolute Auto 0.02 K/uL (0.00-0.30); Basophils Percent Auto 0.3 % (0.0-3.0); Eosinophils Absolute Auto 0.02 K/uL (0.00-0.50); Eosinophils Percent Auto 0.3 % (0.0-7.0); Hemoglobin* 14.8 gm/dL (12.0-16.0); Lymphocytes Percent Auto 15.1 % (20-44); Mean Corpuscular HGB Conc 34 gm/dL (32-36); Mean Corpuscular Hemoglobin 30 pg (26-34); Mean Corpuscular Volume 88 fL (80-100); Monocytes Percent Auto 7.8 % (0.0-11.0); Neutrophils Percent Auto 76.5 % (42.0-72.0); Platelet Count* 311 K/uL (140-440); RDW Coefficient of Variation % 13.2 % (11.5-15.5); White Blood Count* 5.88 K/uL (4.50-11.00)
[2024-08-18 17:00] LABS: Slide Review Reflex No
[2024-08-18 17:09] LABS: PCR FLU A Negative PCR FLU A (Negative); PCR FLU B Negative PCR FLU B (Negative); PCR RSV Negative PCR RSV (Negative); SARS PCR* Negative SARS-CoV-2 (Negative)
[2024-08-18] MEDS: 0.9 % SODIUM CHLORIDE 500 ML 500 ML IV (17:32)
[2024-08-18 17:35] LABS: Salicylate* < 1.0 mg/dL (1.0-10)
[2024-08-18 17:45] LABS: Albumin* 3.9 g/dL (3.3-5.0); Chloride* 101 mmol/L (96-114)
[2024-08-18 17:46] LABS: Potassium* 3.3 mmol/L (3.6-5.1); Sodium* 140 mmol/L (135-149)
[2024-08-18 17:47] LABS: Creatinine* 0.7 mg/dL (0.5-1.5); Est. Creatinine Clearance* 34.08; Estimated Glomerular Filt Rate 91 ml/min
[2024-08-18 17:48] LABS: Alanine Aminotransferase* 19 U/L (4-35); Alkaline Phosphatase* 123 U/L (40-150); Anion Gap 9 mEq/L (7-15); Aspartate Amino Transferase* 34 U/L (12-35); Bilirubin Direct* 0.4 mg/dL (0.0-0.5); Bilirubin Total* 0.7 mg/dL (0.1-1.5); Blood Urea Nitrogen* 10 mg/dL (7-30); Carbon Dioxide* 30 mmol/L (20-32); Creatine Kinase* 60 U/L (41-117); Glucose* 116 mg/dL (60-115); Total Protein* 8.7 g/dL (6.0-8.3)
[2024-08-18 17:49] LABS: Calcium* 9.4 mg/dL (8.4-10.6); Magnesium* 1.9 mg/dL (1.5-2.6)
[2024-08-18 17:51] LABS: C Reactive Protein* 0.8 mg/dL (0.5-1.0)
[2024-08-18 18:00] LABS: Acetaminophen* < 10.0 ug/mL (10.0-30.0); Troponin I* < 0.01 ng/mL (0.01-0.04)
[2024-08-18 18:11] LABS: Ethanol* < 0.01 % (0.01-0.03)
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
[2024-08-18 19:43] VITALS: BP 169/98; PULSE 86; RESP 20; TEMP 36.6; O2SAT 96; BMI 18.9
[2024-08-18 23:00] VITALS: BP 171/98; PULSE 65; RESP 16; RESP 18; TEMP 36.6; O2SAT 100
[2024-08-18 23:36] LABS: Lactate* 1.8 mmol/L (0.5-1.9)
[2024-08-19] MEDS: 0.9 % SODIUM CHLORIDE 500 ML 500 ML IV (00:09)
[2024-08-19] MEDS: SODIUM CHLORIDE 0.9 % (FLUSH) 10 ML SYRINGE 5 ML IVF ×3 (00:09→23:13)
[2024-08-19] MEDS: cefTRIAXone 1 GM in 0.9 % SODIUM CHLORIDE Mini-bag 100 ML IVPB ×2 (00:10→23:12)
[2024-08-19] MEDS: ACETAMINOPHEN 325 MG TABLET 650 MG PO (00:10)
[2024-08-19] MEDS: MELATONIN 3 MG TABLET PO (00:10)
--- NOTE | 2024-08-19 00:24 | PC.NURSE ---
[place] called to do a pet welfare check per MD request. Patient acknowledges she has a cat and there is no way to get into her home. The doors are locked and her house keys are inside. [employer] went [facility], doors were locked and they were unable to get inside to check on her cat.
[2024-08-19 03:00] VITALS: BP 147/95; PULSE 59; RESP 16; TEMP 36.4; O2SAT 98
--- NOTE | 2024-08-19 06:43 | PC.NURSE ---
End of shift: Pt arrived to the unit @ 193. Pt AxOx4, cooperative, and pleasant. Intermittent confusion at times. Pt took a shower with assist of 2 NARS upon admission. Pt has 2 IVs, both SL. Pt having high BPs, notified MD Shultz. Continuing to monitor, no further intervention. BP medication scheduled in the AM. Otherwise, VSS on RA. LSCTA. Pt complaint of chronic L sided shoulder pain. Relieved with position change and PRN Tylenol. Pt has continent/incontinent bladder episodes. A1 GB W. Bed alarm in place. Pt resting in bed with call light within reach.
[2024-08-19 07:00] VITALS: BP 139/88; PULSE 65; RESP 16; TEMP 36.6; O2SAT 98
[2024-08-19] MEDS: ASPIRIN 81 MG TAB.CHEW PO (09:04)
[2024-08-19] MEDS: OMEPRAZOLE 20 MG CAPSULE DR PO (09:04)
[2024-08-19] MEDS: POTASSIUM CHLORIDE 10 MEQ CAPSULE ER 20 MEQ PO (09:04)
[2024-08-19] MEDS: AMLODIPINE 10 MG TABLET PO (09:04)
[2024-08-19 11:00] VITALS: BP 131/83; PULSE 85; RESP 16; TEMP 36.6; O2SAT 99
--- NOTE | 2024-08-19 12:53 | PM.IMPN1 ---
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 OT consult for MOCA. 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 Status: Chronic (5) Hypertension: Problem details: - elevated BP, suspect medication noncompliance - continue amlodipine Status: Chronic (6) Hypokalemia: Problem details: - acute on chronic, suspect medication noncompliance - restart home potassium supplementation Status: Acute (7) Pneumomediastinum: Problem details: - seen on neck CTA, uncertain etiology - monitor for symptoms Status: Acute (8) Poor social situation: Problem details: - Poor conditions of home - unable to reach family, no apparent social support - SW consult Status: Acute Plan -As above -When asked about any family or friends to contact, she said that her son wouldn't answer and did not have someone else to contact. Will consult older adult social work specialist. Time Spent With Patient Total time spent: Today I spent 50 minutes seeing the patient, reviewing Expanse and EPIC notes/diagnostics, discussing the care plan with our care time that includes social work, PT/OT, pharmacy, RT, penitentiary and documenting my impressions and plan in the medical record. Subjective Date Seen: 08/19/24 Interval history: Pt seen and examined at bedside today. Though Pt was oriented x 3, she was confused about the events that led to her admission. Otherwise, she denies any pain, discomfort, fevers, chills or urinary symptoms. When asked about any family or friends to contact, she said that her son wouldn't answer and did not have someone else to contact. Will consult older adult social work specialist. Exam Narrative: Exam Narrative: Physical exam GENERAL: Comfortable, no acute distress. HEAD AND NECK: Atraumatic, normocephalic CARDIOVASCULAR: RRR. Normal S1, S2. No murmurs. RESPIRATORY: Clear to auscultation B/L. Good air entry B/L. No wheezes or rhonchi. GASTROINTESTINAL: Not distended, not tender to palpation. NEUROLOGY: Alert, awake, oriented to self, time, please but not to situation. Normal speech. PSYCH: Normal mood, normal affect. Const: Vital Signs, click to edit/add: Vital Signs - 24 hr 08/18/24 15:47 08/18/24 19:43 08/18/24 19:43 Temperature 97.6 F 97.8 F Pulse Rate [Pulse Oximeter] 92 86 Respiratory Rate 20 Blood Pressure [Le ft Arm] 169/98 H Blood Pressure [Le ft Upper Arm] 142/102 H Blood Pressure [Ri ght Arm] Pulse Oximetry 96 [facility] 08/18/24 23:00 08/18/24 23:00 08/19/24 03:00 Temperature 98 F 97.5 F L Pulse Rate [Pulse Oximeter] 65 59 L Respiratory Rate 16 18 16 Blood Pressure [Le ft Arm] 171/98 H 147/95 H Blood Pressure [Le ft Upper Arm] Blood Pressure [Ri ght Arm] Pulse Oximetry 100 100 98 [facility] Room [facility] Room Air 08/19/24 07:00 08/19/24 07:00 08/19/24 07:00 Temperature 98 F Pulse Rate [Pulse Oximeter] 65 65 Respiratory Rate 16 16 Blood Pressure [Le ft Arm] Blood Pressure [Le ft Upper Arm] Blood Pressure [Ri ght Arm] 139/88 Pulse Oximetry 98 98 [facility] 08/19/24 11:00 Temperature 97.9 F Pulse Rate [Pulse Oximeter] 85 Respiratory Rate 16 Blood Pressure [Le ft Arm] Blood Pressure [Le ft Upper Arm] Blood Pressure [Ri ght Arm] 131/83 Pulse Oximetry 99 [facility] Labs Labs: Laboratory Results - last 24 hr 08/18/24 08/18/24 08/18/24 16:15 16:25 16:45 WBC 5.88 RBC 5.00 Hgb 14.8 Hct 44.0 MCV 88 MCH 30 MCHC 34 RDW Coeff of [place] 13.2 Plt Count 311 Neut % (Auto) 76.5 H Lymph % (Auto) 15.1 L [place] % (Auto) 7.8 Eos % (Auto) 0.3 Baso % (Auto) 0.3 Neut # (Auto) 4.50 Lymph # (Auto) 0.90 [place] # (Auto) 0.50 Eos # (Auto) 0.02 Baso # (Auto) 0.02 Abs Immat Gran (auto) 0.00 Imm/Tot Granulo (auto) 0.0 Sodium 140 Potassium 3.3 L Chloride 101 Carbon Dioxide 30 Anion Gap 9 BUN 10 Creatinine 0.7 Estimated Creat Clear 34.08 Estimated GFR 91 Glucose 116 H Lactate 2.1 H Calcium 9.4 Magnesium 1.9 Total Bilirubin 0.7 Direct Bilirubin 0.4 AST 34 ALT 19 Alkaline Phosphatase 123 Total Creatine Kinase 60 Troponin I < 0.01 L C-Reactive Protein 0.8 Total Protein 8.7 H Albumin 3.9 TSH 2.570 Urine Color Yellow Urine Appearance Slightly Cloudy A Urine pH 7.0 Ur Specific [place] 1.020 Urine Protein 1+ A Urine Glucose (UA) Negative Urine Ketones Negative Urine Blood Negative Urine Nitrite Negative Urine Bilirubin Negative Urine Urobilinogen 2.0 A Ur Leukocyte Esterase Negative Urine RBC 0-2 Urine WBC 5-10 A Ur Squamous Epith Cells Many A Other Sediment Many A Urine Bacteria Moderate A Hyaline Casts Many A Salicylates < 1.0 L Urine Opiates Screen Negative Ur Oxycodone Screen Negative Urine Methadone Screen Negative Acetaminophen < 10.0 L Ur Barbiturates Screen Negative U Tricyclic Antidepress Negative Ur Phencyclidine Scrn Negative Ur Amphetamines Screen Negative U Methamphetamines Scrn Negative U Benzodiazepines Scrn Negative Urine Cocaine Screen Negative U Marijuana (THC) Screen Negative Ur Drug Screen Comment See Note Ethyl Alcohol < 0.01 L SARS-CoV-2 (PCR) Negative SARS-CoV-2 Influenza Type A (PCR) Negative PCR FLU A Influenza Type B (PCR) Negative PCR FLU B RSV (PCR) Negative PCR RSV 08/18/24 08/18/24 19:05 23:15 WBC RBC Hgb Hct MCV MCH MCHC RDW Coeff of [place] Plt Count Neut % (Auto) Lymph % (Auto) [place] % (Auto) Eos % (Auto) Baso % (Auto) Neut # (Auto) Lymph # (Auto) [place] # (Auto) Eos # (Auto) Baso # (Auto) Abs Immat Gran (auto) Imm/Tot Granulo (auto) Sodium Potassium Chloride Carbon Dioxide Anion Gap BUN Creatinine Estimated Creat Clear Estimated GFR Glucose Lactate 3.0 H 1.8 Calcium Magnesium Total Bilirubin Direct Bilirubin AST ALT Alkaline Phosphatase Total Creatine Kinase Troponin I C-Reactive Protein Total Protein Albumin TSH Urine Color Urine Appearance Urine pH Ur Specific [place] Urine Protein Urine Glucose (UA) Urine Ketones Urine Blood Urine Nitrite Urine Bilirubin Urine Urobilinogen Ur Leukocyte Esterase Urine RBC Urine WBC Ur Squamous Epith Cells Other Sediment Urine Bacteria Hyaline Casts Salicylates Urine Opiates Screen Ur Oxycodone Screen Urine Methadone Screen Acetaminophen Ur Barbiturates Screen U Tricyclic Antidepress Ur Phencyclidine Scrn Ur Amphetamines Screen U Methamphetamines Scrn U Benzodiazepines Scrn Urine Cocaine Screen U Marijuana (THC) Screen Ur Drug Screen Comment Ethyl Alcohol SARS-CoV-2 (PCR) Influenza Type A (PCR) Influenza Type B (PCR) RSV (PCR)
[2024-08-19 15:00] VITALS: BP 144/94; PULSE 86; RESP 16; TEMP 36.7; O2SAT 97
[2024-08-19] MEDS: IBUPROFEN 200 MG TABLET PO (15:44)
--- NOTE | 2024-08-19 18:51 | PC.NURSE ---
End of Shift: Patient pleasant and cooperative. Afebrile. Up to bathroom and chair with SBA, walker and gait belt. C/o pain in left shoulder 4/10 and PRN Ibuprofen given x1. Tolerating regular diet with no nausea.
[2024-08-19 19:00] VITALS: BP 138/88; PULSE 81; RESP 16; TEMP 37.1; O2SAT 98
[2024-08-19 23:00] VITALS: BP 146/89; PULSE 61; RESP 16; TEMP 36.6; O2SAT 99
[2024-08-20 03:00] VITALS: RESP 16
[2024-08-20 06:11] LABS: Basophils Absolute Auto 0.03 K/uL (0.00-0.30); Basophils Percent Auto 0.7 % (0.0-3.0); Eosinophils Percent Auto 7.1 % (0.0-7.0); Hematocrit 35.8 % (33.0-51.0); Hemoglobin* 12.1 gm/dL (12.0-16.0); Immature Granulocytes Abs Auto 0.03 K/uL (0.00-0.30); Immature Granulocytes Pct Auto 0.7 %; Lymphocytes Percent Auto 24.4 % (20-44); Mean Corpuscular HGB Conc 34 gm/dL (32-36); Mean Corpuscular Hemoglobin 30 pg (26-34); Mean Corpuscular Volume 87 fL (80-100); Monocytes Percent Auto 9.3 % (0.0-11.0); Neutrophils Percent Auto 57.8 % (42.0-72.0); Platelet Count* 288 K/uL (140-440); RDW Coefficient of Variation % 13.4 % (11.5-15.5)
[2024-08-20 06:21] LABS: Slide Review Reflex No
[2024-08-20 06:27] LABS: Chloride* 105 mmol/L (96-114)
[2024-08-20 06:28] LABS: Sodium* 138 mmol/L (135-149)
[2024-08-20 06:30] LABS: Creatinine* 0.6 mg/dL (0.5-1.5); Est. Creatinine Clearance* 34.73; Estimated Glomerular Filt Rate 95 ml/min
[2024-08-20 06:31] LABS: Anion Gap 2 mEq/L (7-15); Blood Urea Nitrogen* 7 mg/dL (7-30); Calcium* 8.7 mg/dL (8.4-10.6); Carbon Dioxide* 31 mmol/L (20-32); Glucose* 93 mg/dL (60-115)
--- NOTE | 2024-08-20 06:43 | PC.NURSE ---
End of shift [id number]:?AxOx4. Pt cooperative and using call light appropriately. SBA GB W to the bathroom. Denies pain and nausea. Pt able to sleep through majority of the night. Pt refused taking weight this AM. Pt appears resting with call light in reach.
[2024-08-20] MEDS: POTASSIUM CHLORIDE 10 MEQ CAPSULE ER 30 MEQ PO (09:34)
[2024-08-20] MEDS: ASPIRIN 81 MG TAB.CHEW PO (09:34)
[2024-08-20] MEDS: AMLODIPINE 10 MG TABLET PO (09:34)
[2024-08-20] MEDS: OMEPRAZOLE 20 MG CAPSULE DR PO (09:34)
[2024-08-20] MEDS: SODIUM CHLORIDE 0.9 % (FLUSH) 10 ML SYRINGE 5 ML IVF ×2 (09:34→22:30)
[2024-08-20 09:44] VITALS: BP 155/99; PULSE 60; RESP 16; TEMP 36.6; O2SAT 98
[2024-08-20 10:07] VITALS: BMI 18.8
[2024-08-20] MEDS: IBUPROFEN 200 MG TABLET PO ×3 (10:10→23:30)
--- NOTE | 2024-08-20 11:45 | PC.SOCIAL ---
Addendum entered by IKE Pollard 08/20/24 16:50: Discharge planning: Sent information to [facility], [facility] assisted living and [facility] for evaluation for admit. Received call back from Lashae at [facility] stating they can come to the hospital tomorrow 08/21/24 to assess pt for a bed that will be available on Tuesday in a private furnished room. animal husbandry worker to follow up as needed. Addendum entered by IKE Pollard 08/20/24 12:10: [facility]. Sherry states she has been working with pt for awhile and provided the following information: Pt owns her own home, but it is a hoarding situation with cats who are in the home. Pt has completed a Medical Assistance application and Sherry is able to push that through for coverage for a senior living or waiver coverage for an assisted living as needed. Sherry has been working on this with pt who has been agreeable to leaving her home. Sherry states pt is her own decision maker and that the son has not been returning calls and has distanced himself from pt. Sherry is not aware of pt's sister, but states she will look in the record to see if there is any contact information for the sister in her record. Sherry requested an update when placement is found and is willing to assist if a facility needs confirmation of Medical Assistance coverage for placement. Pt has a financial payee in place through [employer] for any bills. animal husbandry worker to follow up as needed. Original Note: Discharge planning: Met with pt who states she lives alone and is requesting placement in a facility where she can get assistance. She is open to short term placement or a long term acute care registered nurse placement. She requested social services analyst look in the [place], [place] area as this is where her sister, Maddison, lives. She shared that her sister is not able to drive so they are unable to see each other. animal husbandry worker asked about her relationship with her son, Desmond. Pt stated Well, he knows I am here and do you see him? She shared that he has not been helpful or supportive prior to hospitalization, but she is agreeable to have him as a doorperson or luggage porter who can receive information on her care and plans. Pt gave permission to this social services analyst to contact son or sister regarding d/c plans. Called sister, Maddison, at number on face sheet [phone] and was unable to leave a message as messages are full. animal husbandry worker called [facility] vulnerable adult department and was informed there is a current open case with [facility], worker Scarlett Lane [phone]. Called and left message for Scarlett at [facility] vulnerable adults requesting a call back. Stamp Presser to follow up as needed.
[2024-08-20 12:22] VITALS: BP 135/92; PULSE 88; RESP 16; TEMP 36.8; O2SAT 100
--- NOTE | 2024-08-20 13:41 | P.IMPN_ITS ---
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 OT consult for MOCA. 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 Status: Chronic (5) Hypertension: Problem details: - elevated BP, suspect medication noncompliance - continue amlodipine Status: Chronic (6) Hypokalemia: Problem details: - acute on chronic, suspect medication noncompliance - restart home potassium supplementation Status: Acute (7) Pneumomediastinum: Problem details: - seen on neck CTA, uncertain etiology - monitor for symptoms Status: Acute (8) Poor social situation: Problem details: - Poor conditions of home - unable to reach family, no apparent social support - SW consult Status: Acute Plan Cont Abx for UTI 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 Subjective Date Seen: 08/20/24 Interval history: Pt seen and examined at bedside today. Afebrile. No new complaints. construction pit worker is working on her previous adult protection case with the [facility]. Exam Narrative: Exam Narrative: Physical exam GENERAL: Comfortable, no acute distress. HEAD AND NECK: Atraumatic, normocephalic CARDIOVASCULAR: RRR. Normal S1, S2. No murmurs. RESPIRATORY: Clear to auscultation B/L. Good air entry B/L. No wheezes or rhonchi. GASTROINTESTINAL: Not distended, not tender to palpation. NEUROLOGY: Alert, awake, oriented X 3. Normal speech. PSYCH: Normal mood, normal affect. Const: Vital Signs, click to edit/add: Vital Signs - 24 hr 08/19/24 15:00 08/19/24 15:00 08/19/24 15:00 Temperature 98.0 F Pulse Rate [Pulse Oximeter] 86 86 Respiratory Rate 16 16 Blood Pressure [Le ft Arm] Blood Pressure [Ri ght Arm] 144/94 H Pulse Oximetry 97 97 Oxygen Delivery Me thod Room Air Room Air 08/19/24 19:00 08/19/24 23:00 08/19/24 23:00 Temperature 98.7 F 98 F Pulse Rate [Pulse Oximeter] 81 61 Respiratory Rate 16 16 16 Blood Pressure [Le ft Arm] 138/88 Blood Pressure [Ri ght Arm] 146/89 H Pulse Oximetry 98 99 99 Oxygen Delivery Me thod Room Air Room Air Room Air 08/20/24 03:00 08/20/24 09:44 08/20/24 09:44 Temperature 97.8 F Pulse Rate [Pulse Oximeter] 60 Respiratory Rate 16 16 16 Blood Pressure [Le ft Arm] Blood Pressure [Ri ght Arm] 155/99 H Pulse Oximetry 98 98 Oxygen Delivery Me thod Room Air Room Air 08/20/24 12:22 Temperature 98.3 F Pulse Rate [Pulse Oximeter] 88 Respiratory Rate 16 Blood Pressure [Le ft Arm] Blood Pressure [Ri ght Arm] 135/92 H Pulse Oximetry 100 Oxygen Delivery Me thod Room Air Labs Labs: Laboratory Results - last 24 hr 08/20/24 05:44 WBC 4.50 RBC 4.10 Hgb 12.1 Hct 35.8 MCV 87 MCH 30 MCHC 34 RDW Coeff of Cony 13.4 Plt Count 288 Neut % (Auto) 57.8 Lymph % (Auto) 24.4 [place]ett % (Auto) 9.3 Eos % (Auto) 7.1 H Baso % (Auto) 0.7 Neut # (Auto) 2.60 Lymph # (Auto) 1.10 [place] # (Auto) 0.40 Eos # (Auto) 0.30 Baso # (Auto) 0.03 Abs Immat Gran (auto) 0.03 Imm/Tot Granulo (auto) 0.7 Sodium 138 Potassium 3.0 L Chloride 105 Carbon Dioxide 31 Anion Gap 2 L BUN 7 Creatinine 0.6 Estimated Creat Clear 34.73 Estimated GFR 95 Glucose 93 Calcium 8.7
[2024-08-20 17:21] VITALS: BP 130/79; PULSE 79; RESP 16; TEMP 36.7; O2SAT 97
[2024-08-20 19:00] VITALS: BP 120/76; PULSE 92; RESP 16; TEMP 36.9; O2SAT 98
--- NOTE | 2024-08-20 19:35 | PC.NURSE ---
End of shift [id number] - Pt alert, oriented to place. Confusion noted by RN related to situation and the events that lead to her hospital stay. RN also noted a delay in verbal response when conversing with pt. Up with standby assistance and walker/gait belt. Ambulating in halls with medical staff. Tolerating RA and regular diet. Reported pain in L arm, given medication per MAR with pt reporting improvement. Pt continent of bladder during shift and responded well to encouragement to use the bathroom. Pt appears to be resting in chair comfortably with call light within reach.
[2024-08-20] MEDS: cefTRIAXone 1 GM in 0.9 % SODIUM CHLORIDE Mini-bag 100 ML IVPB (22:30)
--- NOTE | 2024-08-20 22:49 | PC.NURSE ---
End of shift [id number]:?AxOx4. Pt cooperative and using call light appropriately. SBFreeman DIOR W to the bathroom. Pt went for a walk this evening with LANCE. Reports L shoulder pain that was relieved with a warm compress. Tolerating reg diet/fluids well. Pt resting watching television with call light in reach.
[2024-08-20 23:25] VITALS: BP 121/82; PULSE 76; RESP 16; TEMP 36.6; O2SAT 98
[2024-08-21 01:05] VITALS: RESP 16; O2SAT 99
[2024-08-21 03:50] VITALS: RESP 18
[2024-08-21] MEDS: OMEPRAZOLE 20 MG CAPSULE DR PO (05:47)
--- NOTE | 2024-08-21 06:55 | PC.NURSE ---
End of shift note [id number]: Pt alert and oriented x3 with some forgetfulness. Afebrile. Pt reports 4/10 pain in left side of throat pt states ?feels like arthritic pain?, managed with PRN Ibuprofen. Pt is up SBA with walker and gait belt, voiding, and tolerating a regular diet. ??
[2024-08-21 07:00] VITALS: BP 149/108; PULSE 80; RESP 16; TEMP 36.4; O2SAT 99
[2024-08-21] MEDS: AMLODIPINE 10 MG TABLET PO (09:35)
[2024-08-21] MEDS: POTASSIUM CHLORIDE 10 MEQ CAPSULE ER 20 MEQ PO (09:35)
[2024-08-21] MEDS: ASPIRIN 81 MG TAB.CHEW PO (09:36)
[2024-08-21] MEDS: SODIUM CHLORIDE 0.9 % (FLUSH) 10 ML SYRINGE 5 ML IVF ×3 (09:36→22:48)
[2024-08-21 11:00] VITALS: BP 137/86; PULSE 90; RESP 16; TEMP 36.4; O2SAT 99
--- NOTE | 2024-08-21 11:00 | PC.SOCIAL ---
Discharge planning: Spoke with Yesenia at [facility] who states they could evaluate pt for admit, but they do not currently have a room available. Yesenia states they will hold onto her information and let this social worker masters know if they have a bed to evaluate pt for int he future. [facility] nurse will come from [facility] to evaluate pt for admit to a furnished apartment at the [facility]. Called pt's payee Gena at [employer], , who requested medical bills be sent directly to them at [address]. [facility] [address]. Gena requested to be contacted when discharge plan is established so that they are aware where and when pt leaves the hospital. Met with pt who is aware and agrees with evaluation for admit by nurse from [facility]. She shared that she does not have any phone number for her sister and is aware this social worker masters has been unable to reach sister o the phone number listed in pt's chart. pass worker to follow up as needed.
--- NOTE | 2024-08-21 13:17 | PM.IMPN1 ---
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 OT consult for MOCA. 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 Time Spent With Patient Total time spent: Today I spent 50 minutes seeing the patient, reviewing Expanse and EPIC notes/diagnostics, discussing the care plan with our care time that includes social work, PT/OT, pharmacy, RT, longterm and documenting my impressions and plan in the medical record. Subjective Date Seen: 08/21/24 Interval history: Pt seen and examined at bedside today. Afebrile. No new complaints. [facility] on 2[facility]5 AM. Exam Narrative: Exam Narrative: GENERAL: Comfortable, no acute distress. HEAD AND NECK: Atraumatic, normocephalic CARDIOVASCULAR: RRR. Normal S1, S2. No murmurs. RESPIRATORY: Clear to auscultation B/L. Good air entry B/L. No wheezes or rhonchi. GASTROINTESTINAL: Not distended, not tender to palpation. NEUROLOGY: Alert, awake, oriented to self, time, please but not to situation. Normal speech. PSYCH: Normal mood, normal affect. Const: Vital Signs, click to edit/add: Vital Signs - 24 hr 08/20/24 17:21 08/20/24 17:21 08/20/24 19:00 Temperature 98.1 F 98.5 F Pulse Rate [Pulse Oximeter] 79 92 Respiratory Rate 16 16 16 Blood Pressure [Le ft Arm] Blood Pressure [Ri ght Arm] 130/79 120/76 Pulse Oximetry 97 97 98 Oxygen Delivery Me thod Room Air Room Air Room Air 08/20/24 23:25 08/20/24 23:25 08/20/24 23:25 Temperature 97.8 F Pulse Rate [Pulse Oximeter] 76 Respiratory Rate 16 16 16 Blood Pressure [Le ft Arm] Blood Pressure [Ri ght Arm] 121/82 Pulse Oximetry 98 98 Oxygen Delivery Me thod Room Air Room Air 08/21/24 03:50 08/21/24 07:00 08/21/24 07:00 Temperature Pulse Rate [Pulse Oximeter] 80 Respiratory Rate 18 16 16 Blood Pressure [Le ft Arm] Blood Pressure [Ri ght Arm] Pulse Oximetry 99 Oxygen Delivery Me thod Room Air 08/21/24 07:00 08/21/24 11:00 Temperature 97.6 F 97.6 F Pulse Rate [Pulse Oximeter] 80 90 Respiratory Rate 16 16 Blood Pressure [Le ft Arm] 149/108 H Blood Pressure [Ri ght Arm] 137/86 Pulse Oximetry 99 99 Oxygen Delivery Me thod Room Air Room Air
[2024-08-21 15:00] VITALS: BP 148/93; PULSE 98; RESP 16; TEMP 36.5; O2SAT 100
[2024-08-21] MEDS: ACETAMINOPHEN 325 MG TABLET 650 MG PO (15:00)
[2024-08-21 19:00] VITALS: BP 148/91; PULSE 87; RESP 16; TEMP 37.1; O2SAT 98
[2024-08-21] MEDS: cefTRIAXone 1 GM in 0.9 % SODIUM CHLORIDE Mini-bag 100 ML IVPB (22:47)
[2024-08-22 01:05] VITALS: BP 170/110; PULSE 87; RESP 16; TEMP 36.9; O2SAT 99
[2024-08-22 03:27] VITALS: BP 158/105; PULSE 78; RESP 16; TEMP 36.9; O2SAT 99
[2024-08-22] MEDS: OMEPRAZOLE 20 MG CAPSULE DR PO (06:39)
[2024-08-22 07:00] VITALS: BP 148/93; PULSE 65; RESP 16; RESP 18; TEMP 37.3; O2SAT 99
[2024-08-22 07:03] LABS: Chloride* 105 mmol/L (96-114)
[2024-08-22 07:04] LABS: Potassium* 3.4 mmol/L (3.6-5.1); Sodium* 138 mmol/L (135-149)
[2024-08-22 07:06] LABS: Creatinine* 0.5 mg/dL (0.5-1.5); Est. Creatinine Clearance* 35.88; Estimated Glomerular Filt Rate 99 ml/min
[2024-08-22 07:07] LABS: Anion Gap 5 mEq/L (7-15); Blood Urea Nitrogen* 13 mg/dL (7-30); Calcium* 8.5 mg/dL (8.4-10.6); Carbon Dioxide* 28 mmol/L (20-32); Glucose* 97 mg/dL (60-115)
--- NOTE | 2024-08-22 08:01 | PC.NURSE ---
Pt alert and oriented x3 with some forgetfulness. Pt denies pain, chest pain, SOB, and N/V. Pt is up SBA with walker and gait belt. Pt is voiding and tolerating a regular diet.
[2024-08-22] MEDS: AMLODIPINE 10 MG TABLET PO (09:50)
[2024-08-22] MEDS: ASPIRIN 81 MG TAB.CHEW PO (09:50)
[2024-08-22] MEDS: POTASSIUM CHLORIDE 10 MEQ CAPSULE ER 20 MEQ PO (09:51)
--- NOTE | 2024-08-22 11:04 | PC.SOCIAL ---
Discharge planning: On 08/21/24, pt was evaluated for admit to [facility] care assisted living on the [facility]. Per RN who did the evaluation, pt was appropriate for admit and could have been accepted under the Medical Assistance Waiver. Unfortunately, it was clarified by the [facility] worker, Sherry, that pt's Medical Assistance application is currently pending and has not yet been granted. Sherry shared that the process still have at least two weeks before the Medical Assistance waiver will be in place and pt can go to an assisted living facility under that coverage. Contacted the following facilities regarding evaluation for placement: 1. Secure emailed pt's information to [facility] to request assessment for admit to the rat exterminator care retirement section under Medical Assistance Pending coverage for a short term stay until pt could move into the [facility] unit on their campus with the Medical Assistance Waiver coverage. Awaiting decision from [facility]. 2. Secure emailed pt's information to [facility] admissions for the [facility] facilities, asking for evaluation in any [facility] facility (preferably in [place] or [place]) that could consider a Medical Assistance Pending admission to their shelter care unit. Awaiting decision from [facility]. 3. Left message for [facility] [facility], Yesenia, asking if they could consider a Medical Assistance pending admission with contact information for a worker at [facility] for follow up. Awaiting call back from Yesenia. tankroom worker to follow up as needed.
[2024-08-22 15:00] VITALS: PULSE 65; RESP 18
--- NOTE | 2024-08-22 15:12 | P.IMPN_ITS ---
Progress Note: A&P Assessment and plan (1) Acute urinary tract infection: Problem details: - Klebsiella pneumoniae sensitive to ceftriaxone - 2/ DC treatment with ceftriaxone - 08/23 Start po abx Status: Acute (2) Confusion: Problem details: - unclear if there is any acute component (metabolic encephalopathy due to UTI) as patient has known cognitive dysfunction due to h/o CVA, but baseline is u nclear. OT consult for MOCA. 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 Status: Chronic (5) Hypertension: Problem details: - elevated BP, suspect medication noncompliance - continue amlodipine Status: Chronic (6) Hypokalemia: Problem details: - acute on chronic, suspect medication noncompliance - restart home potassium supplementation Status: Acute (7) Pneumomediastinum: Problem details: - seen on neck CTA, uncertain etiology - monitor for symptoms Status: Acute (8) Poor social situation: Problem details: - Poor conditions of home - unable to reach family, no apparent social support - consult Status: Acute Plan DC to [facility] 2[facility] am Time Spent With Patient Total time spent: Today I spent 50 minutes seeing the patient, reviewing Expanse and EPIC not es/diagnostics, discussing the care plan with our care time that includes social work, PT/OT, pharmacy, RT, shelter and documenting my impressions and plan in the medical record. Subjective Date Seen: 08/22/24 Interval history: Pt seen and examined at bedside today. accepted at [facility] 2 am. Exam Narrative: Exam Narrative: Physical exam GENERAL: Comfortable, no acute distress. HEAD AND NECK: Atraumatic, normocephalic CARDIOVASCULAR: RRR. Normal S1, S2. No murmurs. RESPIRATORY: Clear to auscultation B/L. Good air entry B/L. GASTROINTESTINAL: Not distended, not tender to palpation. NEUROLOGY: Alert, awake, oriented X 3. Normal speech. PSYCH: Normal mood, normal affect. Const: Vital Signs, click to edit/add: Vital Signs - 24 hr 08/21/24 19:00 08/22/24 01:05 08/22/24 03:27 Temperature 98.8 F 98.5 F 98.5 F Pulse Rate [Pulse Oximeter] 87 87 78 Respiratory Rate 16 16 16 Blood Pressure [Le ft Arm] 148/91 H 170/110 H 158/105 H Pulse Oximetry 98 99 99 Oxygen Delivery Me thod Room Air Room Air Room Air 08/22/24 07:00 08/22/24 07:00 Temperature 99.1 F Pulse Rate [Pulse Oximeter] 65 Respiratory Rate 16 18 Blood Pressure [Le ft Arm] 148/93 H Pulse Oximetry 99 99 Oxygen Delivery Me thod Room Air Room Air Labs Labs: Laboratory Results - last 24 hr 08/22/24 05:59 Sodium 138 Potassium 3.4 L Chloride 105 Carbon Dioxide 28 Anion Gap 5 L BUN 13 Creatinine 0.5 Estimated Creat Clear 35.88 Estimated GFR 99 Glucose 97 Calcium 8.5
--- NOTE | 2024-08-22 16:41 | PC.SOCIAL ---
Discharge planning: dock worker reached out to SNF facilities in [facility] with the following results: 1. [facility]- no bed availability. 2. [facility] - no bed availability. 3. [facility] - left message, no call back received. 4. [facility] - sent information for evaluation for admit. 5. [facility] - sent information for evaluation for admit. Received offers for half-way SNF bed from [facility] and [facility] for admit tomorrow. Met with pt who is requesting placement at [facility]. Confirmed acceptance with [facility] who requested pt arrive in the morning if possible. Arranged for taxi picker and packer at 11:00 with [employer]. PAS completed and submitted [id number]. Informed [facility] case management rn, Sherry, about this discharge plan. She will follow up with pt at [facility] for waiver assessment for move to assisted living facility when able. dock worker to follow up as needed.
--- NOTE | 2024-08-22 18:44 | PC.NURSE ---
The patient is pleasant and Alert and orientated. Although speech is delayed in conversation. SBA w/GB and RW. The patient is eating well throughout the day... walked multiple times around the unit today. BID VS. No reports of pain this shift. The patient to Dc tomorrow see sticky note. Call light within reach. Jennyfer WALTERS BSN
[2024-08-22] MEDS: IBUPROFEN 200 MG TABLET PO (21:10)
[2024-08-22] MEDS: CEFPODOXIME PROXETIL 200 MG TABLET PO (22:02)
[2024-08-23] MEDS: OMEPRAZOLE 20 MG CAPSULE DR PO (06:27)
--- NOTE | 2024-08-23 06:35 | PC.NURSE ---
Pt pleasant and cooperative. Pt had no complaints of pain. Pt up with SBA. Pt slept most of the shift.?
[2024-08-23 08:19] VITALS: BP 145/97; PULSE 77; RESP 18; TEMP 36.8; O2SAT 99
[2024-08-23] MEDS: CEFPODOXIME PROXETIL 200 MG TABLET PO (08:32)
[2024-08-23] MEDS: ASPIRIN 81 MG TAB.CHEW PO (08:32)
[2024-08-23] MEDS: POTASSIUM CHLORIDE 10 MEQ CAPSULE ER 20 MEQ PO (08:32)
[2024-08-23] MEDS: AMLODIPINE 10 MG TABLET PO (08:32)
--- NOTE | 2024-08-23 09:41 | PM.DS1 ---
DS: Providers Provider Date Seen: 08/23/24 Date of admission: 08/18/24 19:28 Primary care physician: Ysabel Urbina MD Admitting Clinician: Karina Shultz MD Consults: 08/18/24 20:41 Consult to Occupational Therapy [CONS] Routine Comment: Reason(s) for OT Consult:: Evaluate and Treat Any Restrictions?:: No Restrictions Comment: MOCA Consult to [employer] [CONS] Routine Comment: Reason for Consult:: Social Service Consult Attending Physician on discharge: Delores Santos MD DS: Diagnosis Discharge Diagnosis (1) Acute urinary tract infection: Status: Acute Problem details: - Klebsiella pneumoniae sensitive to ceftriaxone - 2/5 DC treatment with ceftriaxone - 2/5 pm Start po abx (2) Cognitive impairment: Status: Acute Problem details: - patient has known cognitive dysfunction - h/o CVA - OT consult for MOCA -> 17 - CT head w/out acute changes (3) Failure to thrive: Status: Acute Problem details: - weight loss 11/14/22 - 63.5kg 07/04/24 - 63.5kg 08/16/24 - 45.3kg 08/18/24 - 43.1kg - medication noncompliance suspected - poor home conditions (4) 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: Status: Chronic Problem details: 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 (5) Hypertension: Status: Chronic Problem details: - elevated BP, suspect medication noncompliance - continue amlodipine (6) Hypokalemia: Status: Acute Problem details: - acute on chronic, suspect medication noncompliance - restart home potassium supplementation (7) Pneumomediastinum: Status: Acute Problem details: - seen on neck CTA, uncertain etiology - monitor for symptoms (8) Poor social situation: Status: Acute Problem details: - Poor conditions of home - unable to reach family, no apparent social support - SW consult DS: Summary Hospital Course Hospital Course: Maria Del Carmen Martinez is a 74 year old female with cognitive dysfunction due to h/o CVA, asthma, HTN, hyperlipidemia, h/o medication noncompliance, GERD who was brought in to the ER by EMS for confusion. patient has known cognitive dysfunction due to h/o CVA. OT consult for MOCA -> 17. Pt has an open case w/ [facility]. In addition, pt has a UTI that was treated w IV abx. Pt was placed in a SNF. Time Spent with Patient Time attestation: Total time spent providing and/or coordinating discharge services: Exam Narrative: Exam Narrative: Physical exam GENERAL: Comfortable, no acute distress. HEAD AND NECK: Atraumatic, normocephalic CARDIOVASCULAR: RRR. Normal S1, S2. No murmurs. RESPIRATORY: Clear to auscultation B/L. Good air entry B/L. No wheezes or rhonchi. NEUROLOGY: Alert, awake. Normal speech. PSYCH: Normal mood, normal affect. Const: Vital Signs, click to edit/add: Vital Signs - 24 hr 08/22/24 15:00 08/23/24 08:19 08/23/24 08:19 Temperature 98.2 F Pulse Rate [Pulse Oximeter] 65 77 Respiratory Rate 18 18 18 Blood Pressure [Le ft Arm] 145/97 H Pulse Oximetry 99 99 Oxygen Delivery Me thod Room Air Room Air DS: Data Data Completed and Pending Completed studies during hospitalization: Procedures Reposition Left Upper Femur with Internal Fixation Device, Open Approach (04/18/23) Discharge Plan Discharge Disposition: [facility] Date of Admission: 08/18/24 19:28 Attending Provider on Discharge: Delores Fields Primary Care Provider: Yasbel Urbina Condition: Stable Discharge Medications: Continued aspirin 81 mg tablet,chewable 81 mg PO QDAY atorvastatin 40 mg tablet 40 mg PO DAILY potassium chloride 20 mEq tablet extended release 20 meq PO DAILY Qty: 90 1RF omeprazole 20 mg capsule,delayed release(DR/EC) 20 mg PO QDAY Qty: 30 0RF amlodipine 10 mg tablet 10 mg PO QDAY Qty: 30 0RF Discharge Orders: Discharge Order (Routine); Ordered 08/23/24 Ordered By: Delores Fields Additional Instructions: Please follow-up with your primary care physician in 1-2 weeks Activity Level: Activity as Tolerated Discharge Diet: Regular Follow Up Appointments: Ysabel Urbina MD [Primary Care Provider] - Forms: [facility] Info Instructions Admit to: SNF Discharge Potential: Fair Length of Stay: <30 days Can use facility standing orders?: Yes Code Status: Full Code TEDs: Bilateral Knee Rehab Potential: Good Therapy: Occupational Therapy Therapy Orders: Evaluate and Treat and Other Therapy Orders Additional Information: memory/ cognition assessment Oxygen: No
--- NOTE | 2024-08-23 13:49 | PC.NURSE ---
Discharge: patient pleasant and cooperative. Up with SBA, walker and gait belt. Vitals stable, denies pain. Incontinent this morning, however has been continent throughout day. Cares and change of clothes prior to discharge. Nurse to nurse report given to SELENA Amaya at [facility]. [facility] transportation here to bring to [facility]. Staff there informed of ETA and asked to have wheelchair ready and that patient will have physical orders, along with belongings, in back seat of car. No IV present at time of discharge. Patient D/C @ 1322 via wheelchair and staff assist.
== END 2024-08-23 13:22 ==
LOC: ED 18:54 → MEDSURG 19:29
PROVIDERS: Student in an Organized Health Care Education/Training Program; Admitting Provider Family Medicine; Emergency Provider Family Medicine; PCP Family Medicine; Visit Provider Family Medicine
DX: N39.0 Urinary tract infection, site not specified (principal); J98.2 Interstitial emphysema; R41.89 Other symptoms and signs involving cognitive functions and awareness; B96.1 Klebsiella pneumoniae [K. pneumoniae] as the cause of diseases classified elsewhere; Z16.19 Resistance to other specified beta lactam antibiotics; R41.0 Disorientation, unspecified; M25.512 Pain in left shoulder; R62.7 Adult failure to thrive; R63.4 Abnormal weight loss; Z68.1 Body mass index [BMI] 19.9 or less, adult; I10 Essential (primary) hypertension; J45.909 Unspecified asthma, uncomplicated; K21.9 Gastro-esophageal reflux disease without esophagitis; E78.5 Hyperlipidemia, unspecified; Z86.73 Personal history of transient ischemic attack (TIA), and cerebral infarction without residual deficits; Z60.9 Problem related to social environment, unspecified; Z91.199 Patient's noncompliance with other medical treatment and regimen due to unspecified reason; Z63.32 Other absence of family member; Z79.82 Long term (current) use of aspirin
CPT/HCPCS: 36415; 70450; 70496; 70498; 71046; 80048; 80076; 80143; 80179; 80306; 81001; 82077; 82550; 83605; 83735; 84443; 84484; 85025; 86140; 87086; 87631; 96361; 96365; 96366; 97165; 97535; 99284; 99285; A9270; G0378; J0696; J7030; Q9967